=== PATIENT | female | born 1950 | race Caucasian/White ===

== ENCOUNTER 2017-05-28 05:52 | Outpatient (CLI) | payer OTHER, MEDICARE ==
[~2017-05-28] VITALS: Ht 152.4 cm; Wt 82.1 kg
[2017-05-28] MEDS ORDERED: RANI150T15 PO (14:07)
[2017-05-28] MEDS ORDERED: SIMV20TA3 PO (14:07)
[2017-05-28] MEDS ORDERED: OMEP20TA33 PO (14:07)
[2017-05-28] MEDS ORDERED: SUCR1TAB36 PO (14:07)
== END 2017-05-28 14:08 ==
LOC: PREOP 05:52
PROVIDERS: ATTEND Surgery
DX: Z01.818 Encounter for other preprocedural examination (principal); R10.13 Epigastric pain; R14.0 Abdominal distension (gaseous); R14.2 Eructation

== ENCOUNTER → 2017-06-02 | Day surgery (SDC) | payer MEDICARE, OTHER ==
[~2017-06-02] VITALS: Ht 152.4 cm; Wt 82.1 kg
[~2017-06-02] MED LIST: FAMOTIDINE 20MG/2ML IV (PEPCID) IVP ONE; FAMOTIDINE 20MG/2ML IV (PEPCID) ONE; HURRICAINE EXT TUBE (BENZOCAINE) ONE; HURRICAINE EXT TUBE (BENZOCAINE) XX ONE; LACTATED RINGERS 1,000 ML IV ONE; LACTATED RINGERS 1,000 ML IV STA; MIDAZOLAM 2 MG/2 ML (VERSED) VIAL ONE; OMEP20TA33 PO; ONDANSETRON 4 MG/2 ML (SDV) Z0FRAN IVP ONE; ONDANSETRON 4 MG/2 ML (SDV) Z0FRAN ONE; PANT40TA2 PO; RANI150T15 PO; SIMV20TA3 PO; SUCR1TAB36 PO; proPOfol 200 MG/20 ML (DIPRIVAN) VIAL IV ONE
[2017-06-02 12:41] VITALS: BP 136/98
--- NOTE | 2017-06-02 13:03 | Progress Note-Pre Operative ---
Pre-Operative Progress Note H&P Reviewed The H&P was reviewed, patient examined and no changes noted. Date Seen by Provider: Jun 02, 2017 Time Seen by Provider: 13:02 Date H&P Reviewed: Jun 02, 2017 Time H&P Reviewed: 13:02 Pre-Operative Diagnosis: epigastric abdominal pain TIM HURST DO Jun 02, 2017 13:03
--- NOTE | 2017-06-02 13:20 | Progress Note-Post Operative ---
Post-Operative Progess Note Surgeon (s)/Margin Clerk (s) Surgeon TIM HURST DO Margin Clerk: na Pre-Operative Diagnosis epigastric abdominal pain Post-Operative Diagnosis hiatal hernia, slight gastritis Procedure & Operative Findings Date of Procedure 06/02/17 Procedure Performed/Findings egd c biopsy Anesthesia Type per speech clinician Estimated Blood Loss Estimated blood loss (mL): none Specimens/Packing Specimens Removed antrum TIM HURST DO Jun 02, 2017 13:19
--- NOTE | 2017-06-02 13:21 | Discharge Inst-Simple/Standard ---
Discharge Inst-Standard Discharge Medications New, Converted or Re-Newed RX: Transmitted to Pharmacy Patient Instructions/Follow Up Plan of Care/Instructions/FU: 1 week Asim Activity as Tolerated: Yes Discharge Diet: Regular Diet TIM HURST DO Jun 02, 2017 13:21
[2017-06-02 13:35] VITALS: BP 119/72
[2017-06-02 14:00] VITALS: BP 131/78
[2017-06-02 14:02] VITALS: BP 136/98
[2017-06-02 14:13] VITALS: BP 136/98
--- NOTE | 2017-06-02 21:17 | OPERATIVE REPORT ---
DATE OF SERVICE: 06/02/2017 PREOPERATIVE DIAGNOSIS: Epigastric abdominal pain. POSTOPERATIVE DIAGNOSES: Hiatal hernia, slight gastritis. PROCEDURE: EGD with biopsy. SURGEON: Tim Dailey DO ANESTHESIA: Per TOURIST GUIDE. ESTIMATED BLOOD LOSS: None. COMPLICATIONS: None. INDICATIONS: The patient is a 66-year-old female who has been having epigastric abdominal pain. She was started on Zantac, Prilosec and Carafate without any significant improvement. The patient was discussed risks and benefits of procedure, and wished to proceed with procedure. Consent was signed on chart. DESCRIPTION OF PROCEDURE: The patient was taken to the endoscopy suite, placed in left lateral recumbent position. Timeout was performed. Scope was inserted in mouth, down the esophagus, stomach and into the duodenum without difficulty. There were no polyps, masses or ulcerations within the duodenum. The scope was slowly retracted back into the stomach, which was further insufflated. Some slight erythematous changes of the stomach, biopsy of the antrum was obtained. There were no polyps, masses or ulcerations. Scope was retroflexed noting a small hiatal hernia. No other pathology. The scope was then returned to its normal position, slowly withdrawn until the distal esophagus. There were no polyps, masses, ulcerations or erythematous changes. Scope was slowly retracted back until completely removed, noting no other pathology. The patient tolerated the procedure well without any complications. She was taken to the recovery room in stable condition. RECOMMENDATIONS: The patient will stop Zantac and Prilosec and stay on the Carafate. We will add Protonix 40 mg daily. We will see how she is doing. She is scheduled for a HIDA scan to evaluate the gallbladder. We will have her follow up in one week. Job ID: [id number] DocumentID: [id number] Dictated Date: 06/02/2017 13:54:08 Preschool Assistant Teacher Date: 06/02/2017 18:46:10 Dictated By: TIM DAILEY DO
--- OUTSIDE RECORDS SUMMARY | 2017-06-04 13:47 | XMS REPORT | CCD ---
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 Name Role Phone PP Unavailable CCM Unavailable Summary Purpose Interface Exchange Insurance Providers Payer name Policy type / Coverage type Covered green party ID Effective Begin Date Effective End Date WPS Medicare Part B Medicare Part B [id number] Unknown [employer] Medicare Part B [id number] Unknown Family history Daughter Diagnosis Age At Onset Diabetes Unknown Sister Diagnosis Age At Onset Breast cancer Unknown Mother Diagnosis Age At Onset No Family Disease Entered N/A Daughter Diagnosis Age At Onset No Family Disease Entered N/A Daughter Diagnosis Age At Onset No Family Disease Entered N/A Father Diagnosis Age At Onset No Family Disease Entered N/A Social History Social History Element Codes Description Effective Dates Marital status Unknown 12/07/2012 Number of children Unknown 3 12/07/2012 Employment Unknown Retired 12/07/[address]: [id number] Never smoker 12/07/2012 Alcohol history Unknown occasionally drinks alcohol 12/07/2012 Has the patient ever used illegal drugs? Unknown Has never used illegal drugs 12/07/2012 Allergies, Adverse Reactions, Alerts Allergies, Adverse Reactions, Alerts data not found Past Medical History Illness Codes Condition Status Onset Date Resolved Date Gastro-esophageal reflux disease without esophagitis ICD-9: 530.81 ICD-10: K21.9 Active 04/15/2017 Unknown Encounter for immunization ICD-9: V03.82 ICD-10: Z23 Active 02/18/2016 Unknown Impaired fasting glucose ICD-9: 790.21 ICD-10: R73.01 Active 02/18/2016 Unknown Mixed hyperlipidemia ICD-9: 272.4 ICD-10: E78.2 Active 12/07/2012 Unknown ACUTE URI ICD-9: 465.9 Active 06/01/2014 Unknown COUGH ICD-9: 786.2 Active 06/01/2014 Unknown Abnormal glucose ICD-9 : 790.29 Active 10/26/2013 Unknown 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/2013 Unknown HYPERLIPIDEMIA ICD-9: 272.4 Active 10/26/2013 Unknown VACCIN FOR INFLUENZA ICD-9: V04.81 Active 02/08/2013 Unknown Hyperlipidemia Unknown Active 12/07/2012 Unknown Change in skin moles ICD-9: 216.9 Active 12/07/2012 Unknown Problems Condition Codes Effective Dates Condition Status Gastro-esophageal reflux disease without esophagitis ICD-9: 530.81 ICD-10: K21.9 04/15/2017 Active Encounter for immunization ICD-9: V03.82 ICD-10: Z23 02/18/2016 Active Impaired fasting glucose ICD-9: 790.21 ICD-10: R73.01 02/18/2016 Active Mixed hyperlipidemia ICD-9: 272.4 ICD-10: E78.2 12/07/2012 Active ACUTE URI ICD-9: 465.9 06/01/2014 Active COUGH ICD-9: 786.2 06/01/2014 Active Abnormal glucose ICD-9 : 790.29 10/26/2013 Active 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 10/26/2013 Active HYPERLIPIDEMIA ICD-9: 272.4 10/26/2013 Active VACCIN FOR INFLUENZA ICD-9: V04.81 02/08/2013 Active Hyperlipidemia Unknown 12/07/2012 Active Change in skin moles ICD-9: 216.9 12/07/2012 Active Medications Medication Codes Instructions Start Date Stop Date Status Fill Instructions Carafate 1 gram tablet RxNorm: 026257 1 Tablet(s) PO AC & HS as needed 05/28/2017 08/25/2017 Active Prilosec OTC 20 mg tablet,delayed release RxNorm: 819092 1 Tablet(s) PO BID 05/12/2017 08/09/2017 Active Carafate 1 gram tablet RxNorm: 866808 1 Tablet(s) PO AC & HS as needed 04/15/2017 05/14/2017 Inactive Prilosec OTC 20 mg tablet,delayed release RxNorm: 359183 1 Tablet(s) PO BID 04/15/2017 05/11/2017 Inactive simvastatin 20 mg tablet RxNorm: 952460 TAKE ONE TABLET BY MOUTH ONCE DAILY IN THE EVENING 04/08/2017 07/06/2017 Active simvastatin 20 mg tablet RxNorm: 486030 TAKE ONE TABLET BY MOUTH ONCE DAILY IN THE EVENING 01/16/2017 04/07/2017 Inactive simvastatin 20 mg tablet RxNorm: 155874 TAKE ONE TABLET BY MOUTH ONCE DAILY IN THE EVENING 07/14/2016 01/09/2017 Inactive simvastatin 20 mg tablet RxNorm: 988694 TAKE ONE TABLET BY MOUTH ONCE DAILY IN THE EVENING 01/14/2016 07/11/2016 Inactive simvastatin 20 mg tablet RxNorm: 751993 1 Tablet(s) QPM TAKE ONE TABLET BY MOUTH ONCE DAILY 01/18/2015 01/12/2016 Inactive Flonase 50 mcg/actuation nasal spray,suspension RxNorm: 584988 2 [place] NASAL daily 06/01/2014 06/07/2014 Inactive simvastatin 20 mg tablet RxNorm: 636202 1 Tablet(s) QPM TAKE ONE TABLET BY MOUTH ONCE DAILY 06/01/2014 12/27/2014 Inactive Kenalog 40 mg/mL suspension for injection RxNorm: 1424082 1 Milliliter(s) Inj 06/01/2014 06/01/2014 Inactive ceftriaxone 500 mg solution for injection RxNorm: 703387 Inj 06/01/2014 Inactive Augmentin 500 mg-125 mg tablet RxNorm: 112159 1 Tablet(s) PO TID 06/01/2014 06/07/2014 Inactive simvastatin 20 mg tablet RxNorm: 056394 TAKE ONE TABLET BY MOUTH IN THE EVENING 03/23/2014 04/21/2014 Inactive simvastatin 20 mg tablet RxNorm: 232641 1 Tablet(s) QPM TAKE ONE TABLET BY MOUTH ONCE DAILY 03/21/2014 05/31/2014 Inactive simvastatin 20 mg tablet RxNorm: 541792 1 Tablet(s) QPM TAKE ONE TABLET BY MOUTH ONCE DAILY 10/26/2013 03/20/2014 Inactive simvastatin 20 mg tablet RxNorm: 355319 TAKE ONE TABLET BY MOUTH ONCE DAILY 10/18/2013 10/25/2013 Inactive simvastatin 20 mg tablet RxNorm: 556581 1 Tablet(s) PO daily 10/13/2013 Inactive simvastatin 20 mg tablet RxNorm: 518300 1 Tablet(s) PO daily No Start Date 06/15/2013 Inactive Medication Administered Medication Codes Instructions Start Date Status ceftriaxone 500 mg solution for injection RxNorm: 605251 06/01/2014 No longer Active Kenalog 40 mg/mL suspension for injection RxNorm: 0632020 1Milliliter 06/01/2014 No longer Active Immunizations Vaccine Codes Date Status Influenza CVX: 141 12/18/2016 completed Pneumococcal (Adult) CVX: 133 02/19/2016 completed Influenza CVX: 141 12/20/2015 completed Influenza CVX: 141 01/18/2015 completed Influenza CVX: 141 02/08/2013 completed Pneumococcal CVX: 33 02/04/2012 completed Assessments Condition Codes Effective Dates Gastro-esophageal reflux disease without esophagitis ICD-10 : K21.9 ICD-9: 530.81 04/15/2017 Encounter for immunization ICD-10: Z23 ICD-9: V03.82 02/19/2016 Impaired fasting glucose ICD-10: R73.01 ICD-9: 790.21 02/19/2016 Mixed hyperlipidemia ICD-10: E78.2 ICD-9: 272.4 02/19/2016 Encounter for immunization ICD-10: Z23 ICD-9: V04.81 01/18/2015 ACUTE URI ICD-9: 465.9 06/01/2014 COUGH ICD-9: 786.2 06/01/2014 Abnormal glucose ICD-9: 790.29 2013 HYPERLIPIDEMIA ICD-9: 272.4 10/26/2013 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 12/2013 VACCIN FOR INFLUENZA ICD-9: V04.81 2012 Change in skin moles ICD-9: 216.9 2012 Reason For Visit Reason For Visit Effective Dates Notes abdominal pain 04/15/2017 hyperlipidemia 02/19/2016 hyperlipidemia 01/18/2015 cough 06/01/2014 hyperlipidemia 10/26/2013 vaccination against influenza 02/08/2013 diabetes mellitus 12/09/2012 hyperlipidemia 12/07/2012 Results Observation Observation Code Item Item Code Result Date Lipid Ord30 CHOL 175 mg/dL 02/20/2016 Lipid Ord30 HDL 47.0 mg/dl 02/20/2016 Lipid Ord30 TRIG 105 mg/dL 02/20/2016 Lipid Ord30 LDL 107 mg/dL 02/20/2016 Lipid Ord30 C/HDL 3.7 Ratio 02/20/2016 Comp Metabolic Din447 NA 139 mEq/L 02/20/2016 Comp Metabolic Ftw423 K 4.3 mEq/L 02/20/2016 Comp Metabolic Ocj760 CL 106 mEq/L 02/20/2016 Comp Metabolic Jjj424 CO2 26.0 mEq/L 02/20/2016 Comp Metabolic Khc414 ANION GAP 11 02/20/2016 Comp Metabolic Qwn080 GLUCOSE 126 mg/dL 02/20/2016 Comp Metabolic Ahv913 Creat 0.8 mg/dL 02/20/2016 Comp Metabolic Hek739 eGFR 74 ml/min/1.73m2 02/20/2016 Comp Metabolic Rvt901 BUN 9 mg/dL 02/20/2016 Comp Metabolic Msf666 B/C Ratio 11.0 Ratio 02/20/2016 Comp Metabolic Xqf599 CALCIUM 9.0 mg/dL 02/20/2016 Comp Metabolic Jlv819 ALK PHOS 76 U/L 02/20/2016 Comp Metabolic Zko388 AST(SGOT) 15 U/L 02/20/2016 Comp Metabolic Mdk849 ALT(SGPT) 14 U/L 02/20/2016 Comp Metabolic Awg603 BILI T 0.8 mg/dL 02/20/2016 Comp Metabolic Zaf340 ALBUMIN 4.1 g/dL 02/20/2016 Comp Metabolic Eby283 TPRO 6.6 g/dL 02/20/2016 Comp Metabolic Oyf269 GLOB 2.5 g/dL 02/20/2016 Comp Metabolic Kzl175 A/G Ratio 1.6 Ratio 02/20/2016 Comp Metabolic Thh917 Osmo 278 mOsmo 02/20/2016 Cbc With Differential Ord2 WBC 6.30 K/ul 02/20/2016 Cbc With Differential Ord2 RBC 4.79 M/ul 02/20/2016 Cbc With Differential Ord2 HGB 14.7 g/dl 02/20/2016 Cbc With Differential Ord2 HCT 44.1 % 02/20/2016 Cbc With Differential Ord2 Neut% 54.2 % 02/20/2016 Cbc With Differential Ord2 MCV 92.1 fl 02/20/2016 Cbc With Differential Ord2 Lymph% 36.8 % 02/20/2016 Cbc With Differential Ord2 Morris% 7.3 % 02/20/2016 Cbc With Differential Ord2 MCH 30.7 pg 02/20/2016 Cbc With Differential Ord2 MCHC 33.3 pg 02/20/2016 Cbc With Differential Ord2 Eos% 1.4 % 02/20/2016 Cbc With Differential Ord2 Baso% 0.3 % 02/20/2016 Cbc With Differential Ord2 PLT 205 K/ul 02/20/2016 Cbc With Differential Ord2 RDW 13.0 % 02/20/2016 Cbc With Differential Ord2 Neut ABS# 3.41 K/ul 02/20/2016 Cbc With Differential Ord2 Lymph ABS# 2.32 K/ul 02/20/2016 Cbc With Differential Ord2 Morris ABS# 0.5 K/ul 02/20/2016 Cbc With Differential Ord2 Eos ABS# 0.1 K/ul 02/20/2016 Cbc With Differential Ord2 Baso ABS# 0.0 K/ul 02/20/2016 Tsh Ord6 hTSH II 2.62 uIU/mL 02/20/2016 %Hba1C Owm631 % HbA1c 78821-9 6.2 % 02/20/2016 %Hba1C Zdv313 Gluc Ave 131 mg/dL 02/20/2016 Cbc With Differential Ord2 WBC 5.9 K/uL 01/19/2015 Cbc With Differential Ord2 LYM 2.0 K/uL 01/19/2015 Cbc With Differential Ord2 LYM% 34.5 % 01/19/2015 Cbc With Differential Ord2 NEUT/GRAN 3.6 K/uL 01/19/2015 Cbc With Differential Ord2 NEUT/GRAN % 61.3 % 01/19/2015 Cbc With Differential Ord2 MID 0.2 K/uL 01/19/2015 Cbc With Differential Ord2 MID% 4.2 % 01/19/2015 Cbc With Differential Ord2 RBC 4.79 M/uL 01/19/2015 Cbc With Differential Ord2 HGB 14.0 g/dL 01/19/2015 Cbc With Differential Ord2 HCT 45.7 % 01/19/2015 Cbc With Differential Ord2 MCV 96 fL 01/19/2015 Cbc With Differential Ord2 MCH 29 pg 01/19/2015 Cbc With Differential Ord2 MCHC 31 g/dL 01/19/2015 Cbc With Differential Ord2 PLT 221 K/uL 01/19/2015 Cbc With Differential Ord2 RDW 13.9 % 01/19/2015 Tsh Ord6 hTSH II 3.02 uIU/mL 01/19/2015 Lipid Ord30 CHOL 197 mg/dL 01/19/2015 Lipid Ord30 HDL 53.0 mg/dl 01/19/2015 Lipid Ord30 TRIG 95 mg/dL 01/19/2015 Lipid Ord30 LDL 125 mg/dL 01/19/2015 Lipid Ord30 C/HDL 3.7 Ratio 01/19/2015 %Hba1C Mss499 % HbA1c 16390-2 6.1 % 01/19/2015 %Hba1C Gwa191 Gluc Ave 128 mg/dL 01/19/2015 Comp Metabolic Qjv798 NA 139 mEq/L 01/19/2015 Comp Metabolic Chf179 K 4.4 mEq/L 01/19/2015 Comp Metabolic Jmx383 CL 105 mEq/L 01/19/2015 Comp Metabolic Dxd396 CO2 29.0 mEq/L 01/19/2015 Comp Metabolic Wer884 ANION GAP 9 01/19/2015 Comp Metabolic Jhr604 GLUCOSE 128 mg/dL 01/19/2015 Comp Metabolic Xpe016 Creat 0.8 mg/dL 01/19/2015 Comp Metabolic Qoj992 eGFR 74 ml/min/1.73m2 01/19/2015 Comp Metabolic Mjj545 BUN 11 mg/dL 01/19/2015 Comp Metabolic Fzo559 B/C Ratio 13.4 Ratio 01/19/2015 Comp Metabolic Ikm405 CALCIUM 9.1 mg/dL 01/19/2015 Comp Metabolic Yis575 ALK PHOS 81 U/L 01/19/2015 Comp Metabolic Amh358 AST(SGOT) 15 U/L 01/19/2015 Comp Metabolic Hoq406 ALT(SGPT) 14 U/L 01/19/2015 Comp Metabolic Ium395 BILI T 0.8 mg/dL 01/19/2015 Comp Metabolic Nvk927 ALBUMIN 4.2 g/dL 01/19/2015 Comp Metabolic Swz187 TPRO 6.7 g/dL 01/19/2015 Comp Metabolic Skw149 GLOB 2.5 g/dL 01/19/2015 Comp Metabolic Usn245 A/G Ratio 1.7 Ratio 01/19/2015 Comp Metabolic Kfi356 Osmo 279 mOsmo 01/19/2015 Review of Systems System Result Effective Dates Constitutional No recent illness 2016 Constitutional No chills 04/15/2017 Constitutional No diaphoresis 04/15/2017 Constitutional No fever 04/15/2017 Eyes No eye erythema 04/15/2017 Ears/Nose/Throat/Neck No nasal discharge 04/15/2017 Ears/Nose/Throat/Neck No nasal allergies 04/15/2017 Cardiovascular No chest pain/pressure Respiratory No cough 04/15/2017 Respiratory No chest congestion 2016 Gastrointestinal abdominal pain 2016 Gastrointestinal No constipation 2016 Gastrointestinal No diarrhea 04/15/2017 Gastrointestinal gastroesophageal reflux 04/15/2017 Gastrointestinal gas and bloating 2016 Gastrointestinal No vomiting 04/15/2017 Gastrointestinal nausea 04/15/2017 Gastrointestinal No melena 04/15/2017 Gastrointestinal No hematochezia 2016 Neurologic No alteration of consciousness 04/15/2017 Neurologic No mental status change 2016 Constitutional No recent illness 2015 Constitutional No anorexia 02/19/2016 Constitutional No chills 02/19/2016 Constitutional No night sweats 2015 Constitutional No diaphoresis 02/19/2016 Constitutional No fatigue 02/19/2016 Constitutional No insomnia 02/19/2016 Constitutional No fever 02/19/2016 Constitutional No malaise 02/19/2016 Constitutional No weight loss 02/19/2016 Constitutional No weight gain 02/19/2016 Eyes No eye erythema 02/19/2016 Eyes No eye discharge 02/19/2016 Ears/Nose/Throat/Neck No dizziness 2015 Ears/Nose/Throat/Neck No headache 2015 Cardiovascular No chest pain/pressure 04/2015 Respiratory No cough 02/19/2016 Gastrointestinal No abdominal pain 2015 Gastrointestinal No constipation 2015 Gastrointestinal No diarrhea 02/19/2016 Genitourinary/Nephrology No dysuria 02/18 Musculoskeletal No joint complaint 2015 Dermatologic No rash 02/19/2016 Neurologic No alteration of consciousness 02/19/2016 Psychiatric No anxiety 02/19/2016 Psychiatric No depression 02/19/2016 Endocrine No dry or coarse skin 2015 Hematologic/Lymphatic No abnormal bleeding and bruising 02/19/2016 Constitutional No recent illness 2014 Constitutional No anorexia 01/18/2015 Constitutional No night sweats 2014 Constitutional No chills 01/18/2015 Constitutional No diaphoresis 01/18/2015 Constitutional No fatigue 01/18/2015 Constitutional No fever 01/18/2015 Constitutional No malaise 01/18/2015 Constitutional No insomnia 01/18/2015 Constitutional No weight loss 01/18/2015 Constitutional No weight gain 01/18/2015 Constitutional No obesity 01/18/2015 Eyes No vision change 01/18/2015 Ears/Nose/Throat/Neck No headache 2014 Ears/Nose/Throat/Neck No dizziness 2014 Ears/Nose/Throat/Neck No nasal allergies 01/18/2015 Ears/Nose/Throat/Neck No nasal discharge 01/18/2015 Ears/Nose/Throat/Neck No sinus congestion 01/18/2015 Ears/Nose/Throat/Neck No postnasal drip 01/18/2015 Ears/Nose/Throat/Neck No otalgia 2014 Cardiovascular No chest pain/pressure 04/2014 Cardiovascular No exercise intolerance Cardiovascular No edema 01/18/2015 Respiratory No chest congestion 2014 Respiratory No cigarette smoking 2014 Respiratory No chest tightness 2014 Respiratory No productive sputum 2014 Respiratory No dyspnea on exertion 2014 Respiratory No dyspnea 01/18/2015 Gastrointestinal No constipation 2014 Gastrointestinal No diarrhea 01/18/2015 Respiratory snoring 01/18/2015 Genitourinary/Nephrology No dysuria 01/18 Musculoskeletal No arthralgia(s) 2014 Musculoskeletal No myalgias 01/18/2015 Musculoskeletal No joint complaint 2014 Musculoskeletal No muscle weakness 2014 Dermatologic No rash 01/18/2015 Dermatologic No sores 01/18/2015 Psychiatric No anxiety 01/18/2015 Psychiatric No depression 01/18/2015 Constitutional recent illness 06/01/2014 Constitutional No anorexia 06/01/2014 Constitutional No night sweats 2014 Constitutional No chills 06/01/2014 Constitutional No diaphoresis 06/01/2014 Constitutional fatigue 06/01/2014 Constitutional fever 06/01/2014 Constitutional No insomnia 06/01/2014 Constitutional No malaise 06/01/2014 Constitutional No weight loss 06/01/2014 Constitutional No weight gain 06/01/2014 Eyes No eye discharge 06/01/2014 Eyes No eye erythema 06/01/2014 Ears/Nose/Throat/Neck No dizziness 2014 Ears/Nose/Throat/Neck headache 2014 Ears/Nose/Throat/Neck nasal allergies 03/2015 Ears/Nose/Throat/Neck nasal discharge 03/2015 Ears/Nose/Throat/Neck No otalgia 2014 Ears/Nose/Throat/Neck sinus congestion Ears/Nose/Throat/Neck No sore throat 03/2015 Cardiovascular No chest pain/pressure 03/2015 Respiratory productive sputum 06/01/2014 Respiratory chest congestion 06/01/2014 Respiratory cough 06/01/2014 Respiratory No dyspnea 06/01/2014 Gastrointestinal No nausea 06/01/2014 Gastrointestinal No vomiting 06/01/2014 Genitourinary/Nephrology No dysuria 06/01 Musculoskeletal No joint complaint 2014 Dermatologic No rash 06/01/2014 Dermatologic No sores 06/01/2014 Neurologic No alteration of consciousness 06/01/2014 Constitutional No recent illness 2013 Constitutional No chills 10/26/2013 Constitutional No fatigue 10/26/2013 Constitutional No fever 10/26/2013 Constitutional No insomnia 10/26/2013 Constitutional No malaise 10/26/2013 Eyes No blindness 10/26/2013 Eyes No vision change 10/26/2013 Ears/Nose/Throat/Neck No dental pain 12/2013 Ears/Nose/Throat/Neck No dizziness 2013 Ears/Nose/Throat/Neck No dysphagia 2013 Ears/Nose/Throat/Neck No headache 2013 Ears/Nose/Throat/Neck No hearing loss 12/2013 Ears/Nose/Throat/Neck No nasal allergies 10/26/2013 Ears/Nose/Throat/Neck No sore throat 12/2013 Ears/Nose/Throat/Neck No postnasal drip 10/26/2013 Ears/Nose/Throat/Neck No sinus congestion 10/26/2013 Respiratory No chest tightness 2013 Respiratory No cigarette smoking 2013 Respiratory No cough 10/26/2013 Respiratory No dyspnea 10/26/2013 Respiratory No pedal edema 10/26/2013 Respiratory No snoring 10/26/2013 Respiratory No wheezing 10/26/2013 Gastrointestinal No hemorrhoids 2013 Gastrointestinal No abdominal pain 2013 Gastrointestinal No constipation 2013 Gastrointestinal No diarrhea 10/26/2013 Gastrointestinal No gastroesophageal reflux 10/26/2013 Gastrointestinal No melena 10/26/2013 Gastrointestinal No nausea 10/26/2013 Gastrointestinal No vomiting 10/26/2013 Genitourinary/Nephrology No dysuria 10/26 Genitourinary/Nephrology No nocturia 12/2013 Genitourinary/Nephrology No urinary incontinence 10/26/2013 Musculoskeletal No stiffness 10/26/2013 Musculoskeletal No swelling 10/26/2013 Musculoskeletal No muscle weakness 2013 Musculoskeletal No myalgias 10/26/2013 Dermatologic No rash 10/26/2013 Dermatologic No scar 10/26/2013 Neurologic No dizziness 10/26/2013 Neurologic No headache 10/26/2013 Neurologic No neck pain 10/26/2013 Neurologic No syncope 10/26/2013 Psychiatric No anxiety 10/26/2013 Psychiatric No depression 10/26/2013 Constitutional No recent illness 2012 Constitutional No anorexia 12/09/2012 Constitutional No night sweats 2012 Constitutional No chills 12/09/2012 Constitutional No diaphoresis 12/09/2012 Constitutional No fatigue 12/09/2012 Constitutional No fever 12/09/2012 Constitutional No insomnia 12/09/2012 Constitutional No malaise 12/09/2012 Constitutional No recent illness 2012 Constitutional No chills 12/07/2012 Constitutional No fatigue 12/07/2012 Constitutional No fever 12/07/2012 Constitutional No insomnia 12/07/2012 Constitutional No malaise 12/07/2012 Respiratory No chest tightness 2012 Respiratory No cigarette smoking 2012 Respiratory No cough 12/07/2012 Respiratory No dyspnea 12/07/2012 Respiratory No pedal edema 12/07/2012 Respiratory No snoring 12/07/2012 Respiratory No wheezing 12/07/2012 Psychiatric No anxiety 12/07/2012 Psychiatric No depression 12/07/2012 Neurologic No dizziness 12/07/2012 Neurologic No headache 12/07/2012 Neurologic No neck pain 12/07/2012 Neurologic No syncope 12/07/2012 Genitourinary/Nephrology No dysuria 12/07 Genitourinary/Nephrology No nocturia Genitourinary/Nephrology No urinary incontinence 12/07/2012 Gastrointestinal No hemorrhoids 2012 Gastrointestinal No abdominal pain 2012 Gastrointestinal No constipation 2012 Gastrointestinal No diarrhea 12/07/2012 Gastrointestinal No gastroesophageal reflux 12/07/2012 Gastrointestinal No melena 12/07/2012 Gastrointestinal No nausea 12/07/2012 Gastrointestinal No vomiting 12/07/2012 Musculoskeletal No stiffness 12/07/2012 Musculoskeletal No swelling 12/07/2012 Musculoskeletal No muscle weakness 2012 Musculoskeletal No myalgias 12/07/2012 Eyes No blindness 12/07/2012 Eyes No vision change 12/07/2012 Ears/Nose/Throat/Neck No dental pain Ears/Nose/Throat/Neck No dizziness 2012 Ears/Nose/Throat/Neck No dysphagia 2012 Ears/Nose/Throat/Neck No headache 2012 Ears/Nose/Throat/Neck No hearing loss Ears/Nose/Throat/Neck No nasal allergies 12/07/2012 Ears/Nose/Throat/Neck No sore throat Ears/Nose/Throat/Neck No postnasal drip 12/07/2012 Ears/Nose/Throat/Neck No sinus congestion 12/07/2012 Dermatologic No rash 12/07/2012 Dermatologic No scar 12/07/2012 Physical Exam Exam Name System Name Item Name Status Result Effective Dates Notes Full Exam - General 1994 Constitutional general appearance Overall: well developed 04/15/2017 None Full Exam - General 1994 Constitutional general appearance Overall: in no acute distress 04/15/2017 None Full Exam - General 1994 Constitutional general appearance Overall: well nourished 04/15/2017 None Full Exam - General 1994 Eyes conjunctiva /eyelids Overall: conjunctiva clear 04/15/2017 None Full Exam - General 1994 Eyes conjunctiva /eyelids Overall: cornea clear 04/15/2017 None Full Exam - General 1994 Eyes conjunctiva /eyelids Overall: eyelids normal 04/15/2017 None Full Exam - General 1994 Ears/Nose/Throat lips/teeth/gingiva Overall: benign lips 04/15/2017 None Full Exam - General 1994 Ears/Nose/Throat oral cavity/pharynx/larynx Overall: oral mucosa clear 04/15/2017 None Full Exam - General 1994 Respiratory respiratory effort/rhythm Overall: normal rate 04/15/2017 None Full Exam - General 1994 Respiratory respiratory effort/rhythm Overall: no retractions 04/15/2017 None Full Exam - General 1994 Respiratory auscultation Overall: breath sounds clear bilaterally 04/15/2017 None Full Exam - General 1994 Cardiovascular auscultation of heart Overall: regular rate 04/15/2017 None Full Exam - General 1994 Cardiovascular auscultation of heart Overall: normal heart sounds 04/15/2017 None Full Exam - General 1994 Abdomen abdominal exam Overall: normal bowel sounds 04/15/2017 None Full Exam - General 1994 Abdomen abdominal exam Epigastric: non-tender to palpation 04/15/2017 None Full Exam - General 1994 Abdomen abdominal exam Epigastric: dull pain 04/15/2017 None Full Exam - General 1994 Abdomen abdominal exam Epigastric: no rebound tenderness 04/15/2017 None Full Exam - General 1994 Abdomen abdominal exam Epigastric: soft 04/15/2017 None Full Exam - General 1994 Musculoskeletal head and neck Overall: head atraumatic 04/15/2017 None Full Exam - General 1994 Neurologic cranial nerves Overall: crainial nerves 2 - 12 grossly intact 04/15/2017 None Full Exam - General 1994 Psychiatric orientation/consciousness Overall: oriented to person, place and time 04/15/2017 None Full Exam - General 1994 Psychiatric mood and affect Overall: normal mood and affect 04/15/2017 None Full Exam - General 1994 Psychiatric appearance Overall: well-groomed, good eye contact 04/15/2017 None Full Exam - General 1994 Constitutional general appearance Overall: well developed 02/19/2016 None Full Exam - General 1994 Constitutional general appearance Overall: in no acute distress 02/19/2016 None Full Exam - General 1994 Constitutional general appearance Overall: well nourished 02/19/2016 None Full Exam - General 1994 Eyes pupils and irises Overall: pupils equal, round, reactive to light and accomodation 02/19/2016 None Full Exam - General 1994 Ears/Nose/Throat otoscopic exam Overall: external auditory canals clear 02/19/2016 None Full Exam - General 1994 Ears/Nose/Throat otoscopic exam Overall: tympanic membranes clear 02/19/2016 None Full Exam - General 1994 Ears/Nose/Throat oral cavity/pharynx/larynx Overall: oral mucosa clear 02/19/2016 None Full Exam - General 1994 Ears/Nose/Throat oral cavity/pharynx/larynx Overall: oropharyngeal mucosa clear 02/19/2016 None Full Exam - General 1994 Ears/Nose/Throat oral cavity/pharynx/larynx Overall: no masses 02/19/2016 None Full Exam - General 1994 Neck thyroid Overall: normal size 04/2015 None Full Exam - General 1994 Neck thyroid Overall: normal consistency 02/19/2016 None Full Exam - General 1994 Neck thyroid Overall: nontender 2015 None Full Exam - General 1994 Neck thyroid Overall: no mass lesions 02/19/2016 None Full Exam - General 1994 Respiratory auscultation Overall: breath sounds clear bilaterally 02/19/2016 None Full Exam - General 1994 Respiratory respiratory effort/rhythm Overall: no retractions 02/19/2016 None Full Exam - General 1994 Respiratory respiratory effort/rhythm Overall: normal rate 02/19/2016 None Full Exam - General 1994 Cardiovascular extremities Overall: no clubbing 02/19/2016 None Full Exam - General 1994 Cardiovascular auscultation of heart Overall: regular rate 02/19/2016 None Full Exam - General 1994 Cardiovascular auscultation of heart Overall: normal heart sounds 02/19/2016 None Full Exam - General 1994 Cardiovascular auscultation of heart Overall: no murmurs 02/19/2016 None Full Exam - General 1994 Abdomen abdominal exam Overall: no tenderness 02/19/2016 None Full Exam - General 1994 Abdomen abdominal exam Overall: normal bowel sounds 02/19/2016 None Full Exam - General 1994 Abdomen liver and spleen exam Overall: no hepatosplenomegaly 02/19/2016 None Full Exam - General 1994 Abdomen liver and spleen exam Overall: no stigmata of chronic liver disease 02/19/2016 None Full Exam - General 1994 Lymphatic neck nodes Overall: anterior cervical chain benign 02/19/2016 None Full Exam - General 1994 Lymphatic neck nodes Overall: posterior cervical chain benign 02/19/2016 None Full Exam - General 1994 Musculoskeletal spine, ribs and pelvis Overall: spine benign 02/19/2016 None Full Exam - General 1994 Musculoskeletal spine, ribs and pelvis Overall: sacroiliac joint benign 02/19/2016 None Full Exam - General 1994 Musculoskeletal spine, ribs and pelvis Overall: good posture 02/19/2016 None Full Exam - General 1994 Musculoskeletal head and neck Overall: head atraumatic 02/19/2016 None Full Exam - General 1994 Musculoskeletal head and neck Overall: cervical spine benign 02/19/2016 None Full Exam - General 1994 Neurologic deep tendon reflexes Overall: deep tendon reflexes intact 02/19/2016 None Full Exam - General 1994 Neurologic cranial nerves Overall: crainial nerves 2 - 12 grossly intact 02/19/2016 None Full Exam - General 1994 Psychiatric orientation/consciousness Overall: oriented to person, place and time 02/19/2016 None Full Exam - General 1994 Psychiatric mood and affect Overall: normal mood and affect 02/19/2016 None Full Exam - General 1994 Psychiatric mood and affect Mood: happy 02/19/2016 None Full Exam - General 1994 Constitutional general appearance Overall: well developed 01/18/2015 None Full Exam - General 1994 Constitutional general appearance Overall: in no acute distress 01/18/2015 None Full Exam - General 1994 Constitutional general appearance Overall: well nourished 01/18/2015 None Full Exam - General 1994 Eyes pupils and irises Overall: pupils equal, round, reactive to light and accomodation 01/18/2015 None Full Exam - General 1994 Ears/Nose/Throat otoscopic exam Overall: external auditory canals clear 01/18/2015 None Full Exam - General 1994 Ears/Nose/Throat otoscopic exam Overall: tympanic membranes clear 01/18/2015 None Full Exam - General 1994 Ears/Nose/Throat oral cavity/pharynx/larynx Overall: oral mucosa clear 01/18/2015 None Full Exam - General 1994 Ears/Nose/Throat oral cavity/pharynx/larynx Overall: oropharyngeal mucosa clear 01/18/2015 None Full Exam - General 1994 Ears/Nose/Throat oral cavity/pharynx/larynx Overall: no masses 01/18/2015 None Full Exam - General 1994 Neck thyroid Overall: normal size 04/2014 None Full Exam - General 1994 Neck thyroid Overall: normal consistency 01/18/2015 None Full Exam - General 1994 Neck thyroid Overall: nontender 2014 None Full Exam - General 1994 Neck thyroid Overall: no mass lesions 01/18/2015 None Full Exam - General 1994 Respiratory auscultation Overall: breath sounds clear bilaterally 01/18/2015 None Full Exam - General 1994 Respiratory respiratory effort/rhythm Overall: no retractions 01/18/2015 None Full Exam - General 1994 Respiratory respiratory effort/rhythm Overall: normal rate 01/18/2015 None Full Exam - General 1994 Cardiovascular extremities Overall: no clubbing 01/18/2015 None Full Exam - General 1994 Cardiovascular auscultation of heart Overall: regular rate 01/18/2015 None Full Exam - General 1994 Cardiovascular auscultation of heart Overall: normal heart sounds 01/18/2015 None Full Exam - General 1994 Cardiovascular auscultation of heart Overall: no murmurs 01/18/2015 None Full Exam - General 1994 Abdomen abdominal exam Overall: no tenderness 01/18/2015 None Full Exam - General 1994 Abdomen abdominal exam Overall: normal bowel sounds 01/18/2015 None Full Exam - General 1994 Abdomen liver and spleen exam Overall: no hepatosplenomegaly 01/18/2015 None Full Exam - General 1994 Abdomen liver and spleen exam Overall: no stigmata of chronic liver disease 01/18/2015 None Full Exam - General 1994 Lymphatic neck nodes Overall: anterior cervical chain benign 01/18/2015 None Full Exam - General 1994 Lymphatic neck nodes Overall: posterior cervical chain benign 01/18/2015 None Full Exam - General 1994 Musculoskeletal spine, ribs and pelvis Overall: spine benign 01/18/2015 None Full Exam - General 1994 Musculoskeletal spine, ribs and pelvis Overall: sacroiliac joint benign 01/18/2015 None Full Exam - General 1994 Musculoskeletal spine, ribs and pelvis Overall: good posture 01/18/2015 None Full Exam - General 1994 Musculoskeletal head and neck Overall: head atraumatic 01/18/2015 None Full Exam - General 1994 Musculoskeletal head and neck Overall: cervical spine benign 01/18/2015 None Full Exam - General 1994 Neurologic deep tendon reflexes Overall: deep tendon reflexes intact 01/18/2015 None Full Exam - General 1994 Neurologic cranial nerves Overall: crainial nerves 2 - 12 grossly intact 01/18/2015 None Full Exam - General 1994 Psychiatric orientation/consciousness Overall: oriented to person, place and time 01/18/2015 None Full Exam - General 1994 Psychiatric mood and affect Overall: normal mood and affect 01/18/2015 None Full Exam - General 1994 Psychiatric mood and affect Mood: happy 01/18/2015 None Full Exam - ENT Constitutional general appearance Overall: well nourished 06/01/2014 None Full Exam - ENT Constitutional general appearance Overall: well developed 06/01/2014 None Full Exam - ENT Constitutional general appearance Overall: in no acute distress 06/01/2014 None Full Exam - ENT Neurologic orientation Overall: oriented to person, place and time 06/01/2014 None Full Exam - ENT Lymphatic palpation of lymph nodes Overall: shotty lymphadenopathy 06/01/2014 None Full Exam - ENT Abdomen abdominal exam Overall: no tenderness 06/01/2014 None Full Exam - ENT Abdomen abdominal exam Overall: normal bowel sounds 06/01/2014 None Full Exam - ENT Cardiovascular auscultation of heart Overall: regular rate 06/01/2014 None Full Exam - ENT Cardiovascular auscultation of heart Overall: normal heart sounds 06/01/2014 None Full Exam - ENT Respiratory inspection Overall: normal rate 03/2015 None Full Exam - ENT Respiratory inspection Overall: no retractions 06/01/2014 None Full Exam - ENT Respiratory auscultation Overall: breath sounds clear bilaterally 06/01/2014 None Full Exam - ENT Face and Head palpation Overall: no sinus tenderness 06/01/2014 None Full Exam - ENT Ears/Nose/Throat otoscopic exam Overall: tympanic membranes normal 06/01/2014 None Full Exam - ENT Ears/Nose/Throat otoscopic exam Overall: external auditory canals normal 06/01/2014 None Full Exam - ENT Ears/Nose/Throat oropharynx Overall: oral mucosa clear 06/01/2014 None Full Exam - General 1994 Constitutional general appearance Overall: well developed 10/26/2013 None Full Exam - General 1994 Constitutional general appearance Overall: in no acute distress 10/26/2013 None Full Exam - General 1994 Constitutional general appearance Overall: well nourished 10/26/2013 None Full Exam - General 1994 Eyes pupils and irises Overall: pupils equal, round, reactive to light and accomodation 10/26/2013 None Full Exam - General 1994 Ears/Nose/Throat otoscopic exam Overall: external auditory canals clear 10/26/2013 None Full Exam - General 1994 Ears/Nose/Throat otoscopic exam Overall: tympanic membranes clear 10/26/2013 None Full Exam - General 1994 Ears/Nose/Throat oral cavity/pharynx/larynx Overall: oral mucosa clear 10/26/2013 None Full Exam - General 1994 Ears/Nose/Throat oral cavity/pharynx/larynx Overall: oropharyngeal mucosa clear 10/26/2013 None Full Exam - General 1994 Ears/Nose/Throat oral cavity/pharynx/larynx Overall: no masses 10/26/2013 None Full Exam - General 1994 Neck thyroid Overall: normal size 12/2013 None Full Exam - General 1994 Neck thyroid Overall: normal consistency 10/26/2013 None Full Exam - General 1994 Neck thyroid Overall: nontender 2013 None Full Exam - General 1994 Neck thyroid Overall: no mass lesions 10/26/2013 None Full Exam - General 1994 Respiratory auscultation Overall: breath sounds clear bilaterally 10/26/2013 None Full Exam - General 1994 Respiratory respiratory effort/rhythm Overall: no retractions 10/26/2013 None Full Exam - General 1994 Respiratory respiratory effort/rhythm Overall: normal rate 10/26/2013 None Full Exam - General 1994 Cardiovascular extremities Overall: no clubbing 10/26/2013 None Full Exam - General 1994 Cardiovascular auscultation of heart Overall: regular rate 10/26/2013 None Full Exam - General 1994 Cardiovascular auscultation of heart Overall: normal heart sounds 10/26/2013 None Full Exam - General 1994 Cardiovascular auscultation of heart Overall: no murmurs 10/26/2013 None Full Exam - General 1994 Abdomen abdominal exam Overall: no tenderness 10/26/2013 None Full Exam - General 1994 Abdomen abdominal exam Overall: normal bowel sounds 10/26/2013 None Full Exam - General 1994 Abdomen liver and spleen exam Overall: no hepatosplenomegaly 10/26/2013 None Full Exam - General 1994 Abdomen liver and spleen exam Overall: no stigmata of chronic liver disease 10/26/2013 None Full Exam - General 1994 Lymphatic neck nodes Overall: anterior cervical chain benign 10/26/2013 None Full Exam - General 1994 Lymphatic neck nodes Overall: posterior cervical chain benign 10/26/2013 None Full Exam - General 1994 Musculoskeletal spine, ribs and pelvis Overall: spine benign 10/26/2013 None Full Exam - General 1994 Musculoskeletal spine, ribs and pelvis Overall: sacroiliac joint benign 10/26/2013 None Full Exam - General 1994 Musculoskeletal spine, ribs and pelvis Overall: good posture 10/26/2013 None Full Exam - General 1994 Musculoskeletal head and neck Overall: head atraumatic 10/26/2013 None Full Exam - General 1994 Musculoskeletal head and neck Overall: cervical spine benign 10/26/2013 None Full Exam - General 1994 Integument inspection of skin Dermatitis: mole 10/26/2013 in left mid back - above bra clasp - dark center with internal communications specialist peripheral surrounding freckle. Full Exam - General 1994 Neurologic deep tendon reflexes Overall: deep tendon reflexes intact 10/26/2013 None Full Exam - General 1994 Neurologic cranial nerves Overall: crainial nerves 2 - 12 grossly intact 10/26/2013 None Full Exam - General 1994 Psychiatric orientation/consciousness Overall: oriented to person, place and time 10/26/2013 None Full Exam - General 1994 Psychiatric mood and affect Overall: normal mood and affect 10/26/2013 None Full Exam - General 1994 Psychiatric mood and affect Mood: happy 10/26/2013 None Full Exam - General 1994 Constitutional general appearance Overall: well developed 12/09/2012 None Full Exam - General 1994 Constitutional general appearance Overall: in no acute distress 12/09/2012 None Full Exam - General 1994 Constitutional general appearance Overall: well nourished 12/09/2012 None Full Exam - General 1994 Psychiatric orientation/consciousness Overall: oriented to person, place and time 12/09/2012 None Full Exam - General 1994 Eyes conjunctiva /eyelids Overall: conjunctiva clear 12/09/2012 None Full Exam - General 1994 Constitutional general appearance Overall: well nourished 12/07/2012 None Full Exam - General 1994 Constitutional general appearance Overall: well developed 12/07/2012 None Full Exam - General 1994 Constitutional general appearance Overall: in no acute distress 12/07/2012 None Full Exam - General 1994 Eyes pupils and irises Overall: pupils equal, round, reactive to light and accomodation 12/07/2012 None Full Exam - General 1994 Ears/Nose/Throat otoscopic exam Overall: tympanic membranes clear 12/07/2012 None Full Exam - General 1994 Ears/Nose/Throat otoscopic exam Overall: external auditory canals clear 12/07/2012 None Full Exam - General 1994 Ears/Nose/Throat oral cavity/pharynx/larynx Overall: oropharyngeal mucosa clear 12/07/2012 None Full Exam - General 1995 Ears/Nose/Throat oral cavity/pharynx/larynx Overall: no masses 12/07/2012 None Full Exam - General 1995 Ears/Nose/Throat oral cavity/pharynx/larynx Overall: oral mucosa clear 12/07/2012 None Full Exam - General 1994 Neck thyroid Overall: nontender 2012 None Full Exam - General 1994 Neck thyroid Overall: normal size None Full Exam - General 1994 Neck thyroid Overall: no mass lesions 12/07/2012 None Full Exam - General 1994 Neck thyroid Overall: normal consistency 12/07/2012 None Full Exam - General 1994 Respiratory respiratory effort/rhythm Overall: normal rate 12/07/2012 None Full Exam - General 1994 Respiratory respiratory effort/rhythm Overall: no retractions 12/07/2012 None Full Exam - General 1994 Respiratory auscultation Overall: breath sounds clear bilaterally 12/07/2012 None Full Exam - General 1994 Cardiovascular auscultation of heart Overall: regular rate 12/07/2012 None Full Exam - General 1994 Cardiovascular auscultation of heart Overall: normal heart sounds 12/07/2012 None Full Exam - General 1994 Cardiovascular auscultation of heart Overall: no murmurs 12/07/2012 None Full Exam - General 1994 Cardiovascular extremities Overall: no clubbing 12/07/2012 None Full Exam - General 1994 Abdomen abdominal exam Overall: no tenderness 12/07/2012 None Full Exam - General 1994 Abdomen abdominal exam Overall: normal bowel sounds 12/07/2012 None Full Exam - General 1994 Abdomen liver and spleen exam Overall: no hepatosplenomegaly 12/07/2012 None Full Exam - General 1994 Abdomen liver and spleen exam Overall: no stigmata of chronic liver disease 12/07/2012 None Full Exam - General 1994 Lymphatic neck nodes Overall: anterior cervical chain benign 12/07/2012 None Full Exam - General 1994 Lymphatic neck nodes Overall: posterior cervical chain benign 12/07/2012 None Full Exam - General 1994 Musculoskeletal head and neck Overall: cervical spine benign 12/07/2012 None Full Exam - General 1994 Musculoskeletal head and neck Overall: head atraumatic 12/07/2012 None Full Exam - General 1994 Musculoskeletal spine, ribs and pelvis Overall: good posture 12/07/2012 None Full Exam - General 1994 Musculoskeletal spine, ribs and pelvis Overall: sacroiliac joint benign 12/07/2012 None Full Exam - General 1994 Musculoskeletal spine, ribs and pelvis Overall: spine benign 12/07/2012 None Full Exam - General 1994 Neurologic deep tendon reflexes Overall: deep tendon reflexes intact 12/07/2012 None Full Exam - General 1994 Neurologic cranial nerves Overall: crainial nerves 2 - 12 grossly intact 12/07/2012 None Full Exam - General 1994 Psychiatric orientation/consciousness Overall: oriented to person, place and time 12/07/2012 None Full Exam - General 1994 Psychiatric mood and affect Mood: happy 12/07/2012 None Full Exam - General 1994 Psychiatric mood and affect Overall: normal mood and affect 12/07/2012 None Full Exam - General 1994 Integument inspection of skin Dermatitis: mole 12/07/2012 in left mid back - above bra clasp - dark center with internal communications specialist peripheral surrounding freckle. Procedures Procedure Codes Date THER/PROPH/DIAG INJ SC/IM CPT-4: 89599 02/19/2016 PNEUMOCOCCAL VACC [address]: 77128874 CPT-4: 90691 02/19/2016 FLU VACC 4 ANIKA 3 YRS PLUS IM Formatting Model/CDA Sections, Assigned to SNOMED CT: 41193090 CPT-4: [id number] 01/18/2015 ADMIN INFLUENZA VIRUS VAC Formatting Model/CDA Sections, Assigned to CPT-4: [id number] 01/18/2015 TRIAMCINOLONE ACET INJ NOS CPT-4: J3301 06/01/2014 ROCEPHIN, PER 250 MG CPT-4: J0696 06/01/2014 IMMUNIZATION ADMIN CPT -4: 55037 02/08/2013 Influenza Virus Vaccine, Split Virus, >3 Yrs, IM CPT-4: 98890 02/08/2013 Vital Signs Date Vital 04/15/2017 Blood Pressure 1: 136/72 Code : 8480-6 BMI: 35.0 Code : 86773-3 Heart Rate 1 : 80 bpm Height: 5' SpO2: 98% Weight: 179 lbs 02/19/2016 Blood Pressure 1: 130/80 Code : 8480-6 BMI: 35.9 Code : 64739-1 Heart Rate 1 : 75 bpm Height: 5' SpO2: 95% Weight: 184 lbs 01/18/2015 Blood Pressure 1: 142/80 Code : 8480-6 BMI: 34.8 Code : 97949-4 Heart Rate 1 : 76 bpm Height: 5' Weight: 178 lbs 06/01/2014 Blood Pressure 1: 146/88 Code : 8480-6 BMI: 33.4 Code : 95607-1 Heart Rate 1 : 84 bpm Height: 5' Temperature: 37.0 (C) / 98.6 (F) Weight: 171 lbs 10/26/2013 Blood Pressure 1: 142/84 Code : 8480-6 BMI: 30.5 Code : 65112-1 Heart Rate 1 : 60 bpm Height: 5' Weight: 156 lbs 12/09/2012 Blood Pressure 1: 132/90 Code : 8480-6 Heart Rate 1: 56 bpm Weight: 12/07/2012 Blood Pressure 1: 130/82 Code : 8480-6 BMI: 35.2 Code : 96832-9 Heart Rate 1 : 80 bpm Height: 5' Weight: 180 lbs Functional Status No Functional Status data History of Present Illness Symptom Name Status Result Effective Date Notes abdominal pain Location in the epigastric area 04/15/2017 None abdominal pain Quality intermittent 04/15/2017 None abdominal pain Quality worsening 04/15/2017 None abdominal pain Pertinent Findings Denies cough 04/15/2017 None hyperlipidemia Onset of Symptom during adulthood 02/19/2016 None hyperlipidemia Severity mild 02/19/2016 None hyperlipidemia Frequency of Episodes unchanged 02/19/2016 None hyperlipidemia Significant Medications statin 02/19/2016 None hyperlipidemia Alleviating Factors medication 02/19/2016 None hyperlipidemia Exacerbating Factors diet 02/19/2016 None hyperlipidemia Pertinent Findings insulin resistance 02/19/2016 None hyperlipidemia Pertinent Findings Denies nausea 02/19/2016 None hyperlipidemia Pertinent Findings Denies obesity 02/19/2016 None hyperlipidemia Onset and Resolution ongoing 02/19/2016 None hyperlipidemia Significant Family History hyperlipidemia 02/19/2016 None hyperlipidemia Onset and Resolution ongoing 01/18/2015 None hyperlipidemia Onset of Symptom during adulthood 01/18/2015 None hyperlipidemia Severity mild 01/18/2015 None hyperlipidemia Exacerbating Factors diet 01/18/2015 None hyperlipidemia Pertinent Findings insulin resistance 01/18/2015 None hyperlipidemia Pertinent Findings Denies nausea 01/18/2015 None hyperlipidemia Pertinent Findings Denies obesity 01/18/2015 None hyperlipidemia Significant Family History hyperlipidemia 01/18/2015 None hyperlipidemia Frequency of Episodes unchanged 01/18/2015 None hyperlipidemia Alleviating Factors medication 01/18/2015 None hyperlipidemia Significant Medications statin 01/18/2015 None cough Onset of Symptom 3 days ago 06/01/2014Thursday cough Pertinent Findings chest discomfort 06/01/2014 reports feels heavy and hurts when she coughs cough Pertinent Findings Denies dyspnea 06/01/2014 None cough Pertinent Findings fever 06/01/2014 99.1 cough Pertinent Findings nasal congestion 06/01/2014 None cough Pertinent Findings sputum production 06/01/2014 clear sinus congestion Onset of Symptom 3 days ago 06/01/2014 None sinus congestion Pertinent Findings cough 06/01/2014 None sinus congestion Pertinent Findings fever 06/01/2014 None sinus congestion Pertinent Findings decreased energy level 06/01/2014 None fever Onset of Symptom 3 days ago 06/01/2014 None fever Temperature 99 degrees 06/01/2014 None fever Pertinent Findings chills 06/01/2014Thursday and Thursday fever Pertinent Findings cough 06/01/2014 None cough Quality acute None cough Onset and Resolution ongoing 06/01/2014 None cough Location in the throat 06/01/2014 None cough Limitation on Activities does not limit activities 06/01/2014 None cough Frequency of Episodes increasing 06/01/2014 None cough Triggers no known associated factors 06/01/2014 None cough Pertinent Findings Denies lethargy 06/01/2014 None cough Pertinent Findings Denies vomiting 06/01/2014 None sinus congestion Onset and Resolution ongoing 06/01/2014 None sinus congestion Severity moderate 06/01/2014 None sinus congestion Frequency of Episodes increasing 06/01/2014 None sinus congestion Triggers no known associated factors 06/01/2014 None sinus congestion Location on both sides 06/01/2014 None sinus congestion Quality acute 06/01/2014 None sinus congestion Pertinent Findings facial pain 06/01/2014 None sinus congestion Pertinent Findings Denies vomiting 06/01/2014 None fever Onset and Resolution ongoing 06/01/2014 None fever Quality acute None fever Triggers no known associated factors 06/01/2014 None fever Alleviating Factors Tylenol 06/01/2014 None hyperlipidemia Onset and Resolution ongoing 10/26/2013 None hyperlipidemia Onset of Symptom during adulthood 10/26/2013 None hyperlipidemia Severity mild 10/26/2013 None hyperlipidemia Significant Family History hyperlipidemia 10/26/2013 None hyperlipidemia Pertinent Findings Denies obesity 10/26/2013 None hyperlipidemia Pertinent Findings Denies nausea 10/26/2013 None hyperlipidemia Pertinent Findings insulin resistance 10/26/2013 None hyperlipidemia Exacerbating Factors diet 10/26/2013 None diabetes mellitus Quality acute 12/09/2012 elevated hgb a1c diabetes mellitus Test results HgbA1c level 6.2 12/09/2012 None diabetes mellitus Glucose monitoring does not test 12/09/2012 None diabetes mellitus Nutrition regular diet 12/09/2012 None diabetes mellitus Exercise moderate exercise 12/09/2012 None diabetes mellitus Onset of Symptom onset as an adult 12/09/2012 None diabetes mellitus Pertinent Findings Denies vomiting 12/09/2012 None diabetes mellitus Pertinent Findings Denies dehydration 12/09/2012 None diabetes mellitus Pertinent Findings Denies fruity breath 12/09/2012 None diabetes mellitus Pertinent Findings Denies increased hunger 12/09/2012 None diabetes mellitus Pertinent Findings Denies lethargy 12/09/2012 None hyperlipidemia Onset of Symptom 4-5 years ago 12/07/2012 None hyperlipidemia Severity mild 12/07/2012 None hyperlipidemia Triggers no known associated factors 12/07/2012 None hyperlipidemia Alleviating Factors medication 12/07/2012 None hyperlipidemia Exacerbating Factors diet 12/07/2012 None hyperlipidemia Quality chronic 12/07/2012 None hyperlipidemia Quality decreased HDL 12/07/2012 None hyperlipidemia Quality increased LDL 12/07/2012 None hyperlipidemia Pertinent Findings Denies nausea 12/07/2012 None hyperlipidemia Pertinent Findings obesity 12/07/2012 None Advance Directives No Advance Directive data Encounters Encounter Performer Location Codes Date 67026 EST. PATIENT, LEVEL III Diagnosis: Gastro-esophageal reflux disease without esophagitis[ICD10: K21.9] Yasemin Alvarez MD, [facility] CPT-4: 09782 04/15/2017 ([id number]) [id number] EST. PATIENT, LEVEL III Diagnosis: Impaired fasting glucose[ICD10: R73.01] Diagnosis: Mixed hyperlipidemia[ICD10: E78.2] Diagnosis: Encounter for immunization[ICD10: Z23] Jeaneth Alvarez MD, [facility] CPT-4: 26331 02/19/2016 ([id number]) 77849 EST. PATIENT, LEVEL III Diagnosis: Mixed hyperlipidemia[ICD10: E78.2] Diagnosis: Impaired fasting glucose[ICD10: R73.01] Jeaneth Alvarez MD, [facility] CPT-4: 84059 01/18/2015 ([id number]) 21875 EST. PATIENT, LEVEL III Diagnosis: ACUTE URI[ICD9: 465.9] Diagnosis: COUGH[ICD9: 786.2] Jeaneth Alvarez MD, [facility] CPT-4: 13026 06/01/2014 ([id number]) [id number] EST. 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] Diagnosis: Elevated blood sugar[ICD9: 790.29] Carmella Alvarez MD, [facility] CPT-4: 22846 12/09/2012 ([id number]) OFFICE VISIT, NEW - LEVEL 3 Diagnosis: HYPERLIPIDEMIA[ICD9: 272.4] Diagnosis: Abnormal glucose[ICD9: 790.29] Diagnosis: Change in skin moles[ICD9: 216.9] [facility] CPT-4: 02046 12/07/2012 Plan of Care Planned Activity Notes Codes Status Date Appointment: Yasemin Awan WPtel: [address] [place], [place] [id number] [place] (30 min) Complex 04/15/2017 Patient Education: Patient Medication Summary Completed 04/15/2017 Appointment: Jeaneth Ocampo WPtel: [phone] [phone] (15 min) Moderate 02/19/2016 Patient Education: Patient Medication Summary Completed 02/19/2016 Appointment: (30 min) Complex 01/18/2015 Patient Education: Patient Medication Summary Completed 01/18/2015 Appointment: Sick 06/01/2014 Patient Education: Patient Medication Summary Completed 06/01/2014 Appointment: Carmella Alvarez WPtel: [facility] Follow up 10/26/2013 Patient Education: Patient Medication Summary Completed 10/26/2013 Appointment: Jeaneth Ocampo WPtel: [phone] [phone] Injection 02/08/2013 Patient Education: Patient Medication Summary Completed 02/08/2013 Appointment: Jeaneth Ocampo WPtel: [phone] Other 12/09/2012 Patient Education: Patient Medication Summary Completed 12/09/2012 Patient Education: .Amazing charts Diabetic meal planning guide Completed 12/09 Appointment: Carmella Alvarez WPtel: [phone] [facility] New Patient 12/07/2012 Patient Education: Patient Medication Summary Completed 12/07/2012 Instructions No Instructions
--- OUTSIDE RECORDS SUMMARY | 2017-06-04 13:48 | XMS REPORT | CCD ---
Author Author Carmella Alvarze MD, [facility] Address [address] [place] [address] Phone Care Team Providers Care Senior Director Name Role Phone PP Unavailable CCM Unavailable Summary Purpose Interface Exchange Insurance Providers Payer name Policy type / Coverage type Covered democrat ID Effective Begin Date Effective End Date WPS Medicare Part B Medicare Part B [id number] Unknown Add[employer] Medicare Part B [id number] Unknown Family history Daughter Diagnosis Age At [...] Unknown Retired 12/07/[address]: 793741792 Never smoker 12/07/2012 Alcohol history Unknown occasionally [...] ICD-9 : 790.29 Active 10/26/2013 Unknown 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 ICD-9: V65.3 Active 10/26/2013 Unknown HYPERLIPIDEMIA ICD-9: [...] glucose ICD-9 : 790.29 10/26/2013 Active 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 ICD-9: V65.3 10/26/2013 Active HYPERLIPIDEMIA ICD-9: 272.4 10/26/2013 Active VACCIN FOR INFLUENZA ICD-9: V04.81 02/08/2013 Active Hyperlipidemia Unknown 12/07/2012 Active Change in skin moles ICD-9: 216.9 12/07/2012 Active Medications Medication Codes Instructions Start Date Stop Date Status Fill Instructions Prilosec OTC 20 mg tablet,delayed release RxNorm: 005819 1 Tablet(s) PO BID 05/12/2017 08/09/2017 Active Carafate 1 gram tablet RxNorm: 780659 1 Tablet(s) PO AC & HS as needed 04/15/2017 05/14/2017 Inactive Prilosec OTC 20 mg tablet,delayed release RxNorm: 157760 1 Tablet(s) PO BID 04/15/2017 05/11/2017 Inactive simvastatin 20 mg tablet RxNorm: 084216 TAKE ONE TABLET BY MOUTH ONCE DAILY IN THE EVENING 04/08/2017 07/06/2017 Active simvastatin 20 mg tablet RxNorm: 416013 TAKE ONE TABLET BY MOUTH ONCE DAILY IN THE EVENING 01/16/2017 04/07/2017 Inactive simvastatin 20 mg tablet RxNorm: 220515 TAKE ONE TABLET BY MOUTH ONCE DAILY IN THE EVENING 07/14/2016 01/09/2017 Inactive simvastatin 20 mg tablet RxNorm: 415589 TAKE ONE TABLET BY MOUTH ONCE DAILY IN THE EVENING 01/14/2016 07/11/2016 Inactive simvastatin 20 mg tablet RxNorm: 621370 1 Tablet(s) QPM TAKE ONE TABLET BY MOUTH ONCE DAILY 01/18/2015 01/12/2016 Inactive Flonase 50 mcg/actuation nasal spray,suspension RxNorm: 643630 2 [place] NASAL daily 06/01/2014 06/07/2014 Inactive simvastatin 20 mg tablet RxNorm: 400873 1 Tablet(s) QPM TAKE ONE TABLET BY MOUTH ONCE DAILY 06/01/2014 12/27/2014 Inactive Kenalog 40 mg/mL suspension for injection RxNorm: 3246684 1 Milliliter(s) Inj 06/01/2014 06/01/2014 Inactive ceftriaxone 500 mg solution for injection RxNorm: 020534 Inj 06/01/2014 Inactive Augmentin 500 mg-125 mg tablet RxNorm: 305517 1 Tablet(s) PO TID 06/01/2014 06/07/2014 Inactive simvastatin 20 mg tablet RxNorm: 872210 TAKE ONE TABLET BY MOUTH IN THE EVENING 03/23/2014 04/21/2014 Inactive simvastatin 20 mg tablet RxNorm: 683771 1 Tablet(s) QPM TAKE ONE TABLET BY MOUTH ONCE DAILY 03/21/2014 05/31/2014 Inactive simvastatin 20 mg tablet RxNorm: 331084 1 Tablet(s) QPM TAKE ONE TABLET BY MOUTH ONCE DAILY 10/26/2013 03/20/2014 Inactive simvastatin 20 mg tablet RxNorm: 675507 TAKE ONE TABLET BY MOUTH ONCE DAILY 10/18/2013 10/25/2013 Inactive simvastatin 20 mg tablet RxNorm: 041576 1 Tablet(s) PO daily 10/13/2013 Inactive simvastatin 20 mg tablet RxNorm: 584201 1 Tablet(s) PO daily No Start Date 06/15/2013 Inactive Medication Administered Medication Codes Instructions Start Date Status ceftriaxone 500 mg solution for injection RxNorm: 204620 06/01/2014 No longer Active Kenalog 40 mg/mL suspension for injection RxNorm: 9858362 1Milliliter 06/01/2014 No longer Active Immunizations Vaccine Codes Date Status Influenza CVX: 141 12/18/2016 completed Pneumococcal (Adult) CVX: 133 02/19/2016 completed Influenza CVX: 141 12/20/2015 completed Influenza CVX: 141 01/18/2015 completed Influenza CVX: 141 02/08/2013 completed Pneumococcal CVX: 33 02/04/2012 completed Assessments Condition Codes Effective Dates Gastro-esophageal reflux disease without esophagitis ICD-10 : K21.9 ICD-9: 530.81 04/15/2017 Mixed hyperlipidemia ICD-10: E78.2 ICD-9: 272.4 02/19/2016 Encounter for immunization ICD-10: Z23 ICD-9: V03.82 02/19/2016 Impaired fasting glucose ICD-10: R73.01 ICD-9: 790.21 02/19/2016 Encounter for immunization ICD-10: Z23 ICD-9: V04.81 01/18/2015 ACUTE URI ICD-9: 465.9 06/01/2014 COUGH ICD-9: 786.2 06/01/2014 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 ICD-9: V65.3 12/2013 Abnormal glucose ICD-9: 790.29 2013 HYPERLIPIDEMIA ICD-9: 272.4 10/26/2013 VACCIN FOR INFLUENZA ICD-9: V04.81 2012 Change in skin moles ICD-9: 216.9 2012 Reason For Visit Reason For Visit Effective Dates Notes abdominal pain 04/15/2017 hyperlipidemia 02/19/2016 hyperlipidemia 01/18/2015 cough 06/01/2014 hyperlipidemia 10/26/2013 vaccination against influenza 02/08/2013 diabetes mellitus 12/09/2012 hyperlipidemia 12/07/2012 Results Observation Observation Code Item Item Code Result Date %Hba1C Ieh029 % HbA1c 78789-7 6.2 % 02/20/2016 %Hba1C Mjl085 Gluc Ave 131 mg/dL 02/20/2016 Lipid Ord30 CHOL 175 mg/dL 02/20/2016 Lipid Ord30 HDL 47.0 mg/dl 02/20/2016 Lipid Ord30 TRIG 105 mg/dL 02/20/2016 Lipid Ord30 LDL 107 mg/dL 02/20/2016 Lipid Ord30 C/HDL 3.7 Ratio 02/20/2016 Tsh Ord6 hTSH II 2.62 uIU/mL 02/20/2016 Comp Metabolic Mfq007 NA 139 mEq/L 02/20/2016 Comp Metabolic Nhc946 K 4.3 mEq/L 02/20/2016 Comp Metabolic Kig954 CL 106 mEq/L 02/20/2016 Comp Metabolic Uys519 CO2 26.0 mEq/L 02/20/2016 Comp Metabolic Jwc322 ANION GAP 11 02/20/2016 Comp Metabolic Coa795 GLUCOSE 126 mg/dL 02/20/2016 Comp Metabolic Vkn320 Creat 0.8 mg/dL 02/20/2016 Comp Metabolic Ofn092 eGFR 74 ml/min/1.73m2 02/20/2016 Comp Metabolic Pqt526 BUN 9 mg/dL 02/20/2016 Comp Metabolic Hlv364 B/C Ratio 11.0 Ratio 02/20/2016 Comp Metabolic Hcq850 CALCIUM 9.0 mg/dL 02/20/2016 Comp Metabolic Ghv993 ALK PHOS 76 U/L 02/20/2016 Comp Metabolic Uow947 AST(SGOT) 15 U/L 02/20/2016 Comp Metabolic Zyb064 ALT(SGPT) 14 U/L 02/20/2016 Comp Metabolic Sqg560 BILI T 0.8 mg/dL 02/20/2016 Comp Metabolic Nmg435 ALBUMIN 4.1 g/dL 02/20/2016 Comp Metabolic Qok659 TPRO 6.6 g/dL 02/20/2016 Comp Metabolic Dks805 GLOB 2.5 g/dL 02/20/2016 Comp Metabolic Ask734 A/G Ratio 1.6 Ratio 02/20/2016 Comp Metabolic Kun033 Osmo 278 mOsmo 02/20/2016 Cbc With Differential [...] 36.8 % 02/20/2016 Cbc With Differential Ord2 MCH 30.7 pg 02/20/2016 Cbc With Differential Ord2 [place]% 7.3 % 02/20/2016 Cbc With Differential Ord2 MCHC 33.3 pg 02/20/2016 Cbc With Differential Ord2 Eos% 1.4 % 02/20/2016 Cbc With Differential Ord2 Baso% 0.3 % 02/20/2016 Cbc With Differential Ord2 PLT 205 K/ul 02/20/2016 Cbc With Differential Ord2 RDW 13.0 % 02/20/2016 Cbc With Differential Ord2 Neut ABS# 3.41 K/ul 02/20/2016 Cbc With Differential Ord2 Lymph ABS# 2.32 K/ul 02/20/2016 Cbc With Differential Ord2 [place] ABS# 0.5 K/ul 02/20/2016 Cbc With Differential Ord2 Eos ABS# 0.1 K/ul 02/20/2016 Cbc With Differential Ord2 Baso ABS# 0.0 K/ul 02/20/2016 Comp Metabolic Nfv952 NA 139 mEq/L 01/19/2015 Comp Metabolic Jlc512 K 4.4 mEq/L 01/19/2015 Comp Metabolic Tdy293 CL 105 mEq/L 01/19/2015 Comp Metabolic Uze323 CO2 29.0 mEq/L 01/19/2015 Comp Metabolic Jci099 ANION GAP 9 01/19/2015 Comp Metabolic Due484 GLUCOSE 128 mg/dL 01/19/2015 Comp Metabolic Vsl628 Creat 0.8 mg/dL 01/19/2015 Comp Metabolic Oej104 eGFR 74 ml/min/1.73m2 01/19/2015 Comp Metabolic Svc005 BUN 11 mg/dL 01/19/2015 Comp Metabolic Qup301 B/C Ratio 13.4 Ratio 01/19/2015 Comp Metabolic Yjn169 CALCIUM 9.1 mg/dL 01/19/2015 Comp Metabolic Jjb803 ALK PHOS 81 U/L 01/19/2015 Comp Metabolic Obq666 AST(SGOT) 15 U/L 01/19/2015 Comp Metabolic Run547 ALT(SGPT) 14 U/L 01/19/2015 Comp Metabolic Dik649 BILI T 0.8 mg/dL 01/19/2015 Comp Metabolic Rrv513 ALBUMIN 4.2 g/dL 01/19/2015 Comp Metabolic Xjc727 TPRO 6.7 g/dL 01/19/2015 Comp Metabolic Gue941 GLOB 2.5 g/dL 01/19/2015 Comp Metabolic Hql384 A/G Ratio 1.7 Ratio 01/19/2015 Comp Metabolic Uca794 Osmo 279 mOsmo 01/19/2015 Cbc With Differential Ord2 WBC 5.9 K/uL [...] Lipid Ord30 C/HDL 3.7 Ratio 01/19/2015 %Hba1C Ltj611 % HbA1c 53235-5 6.1 % 01/19/2015 %Hba1C Kkj251 Gluc Ave 128 mg/dL 01/19/2015 Review of Systems System Result Effective [...] tenderness 10/26/2013 None Full Exam - General 1995 Abdomen abdominal exam Overall: normal bowel sounds 10/26/2013 None Full Exam - General 1995 Abdomen liver and spleen exam Overall: no hepatosplenomegaly 10/26/2013 None Full Exam - General 1994 Abdomen liver and spleen exam Overall: no stigmata of chronic liver disease 10/26/2013 None Full Exam - General 1995 Lymphatic neck nodes Overall: anterior cervical chain benign 10/26/2013 None Full Exam - General 1995 Lymphatic neck nodes Overall: posterior cervical chain [...] above bra clasp - dark center with traffic 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 Full Exam - General [...] accomodation 12/07/2012 None Full Exam - General 1995 Ears/Nose/Throat otoscopic exam Overall: tympanic membranes clear 12/07/2012 None Full Exam - General 1995 Ears/Nose/Throat otoscopic exam Overall: external auditory canals clear 12/07/2012 None Full Exam - General 1994 Ears/Nose/Throat oral cavity/pharynx/larynx Overall: oropharyngeal mucosa clear 12/07/2012 None Full Exam - General 1994 Ears/Nose/Throat oral cavity/pharynx/larynx Overall: no masses 12/07/2012 [...] disease 12/07/2012 None Full Exam - General 1995 Lymphatic neck nodes Overall: anterior cervical chain benign 12/07/2012 None Full Exam - General 1994 Lymphatic neck nodes Overall: posterior cervical chain benign 12/07/2012 None Full Exam - General 1995 Musculoskeletal head and neck Overall: cervical spine benign 12/07/2012 None Full Exam - General 1995 Musculoskeletal head and neck Overall: head atraumatic 12/07/2012 None Full Exam - General 1995 Musculoskeletal spine, ribs and pelvis Overall: good [...] above bra clasp - dark center with traffic 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 Procedures Procedure Codes Date THER/PROPH/DIAG INJ SC/IM CPT-4: 93794 02/19/2016 PNEUMOCOCCAL VACC [address]: 21834238 CPT-4: 13918 02/19/2016 FLU VACC 4 ANIKA 3 YRS PLUS IM Formatting Model/CDA Sections, Assigned to SNOMED CT: 70362063 CPT-4: 36702Hvyhyrh 01/18/2015 ADMIN INFLUENZA VIRUS VAC Formatting Model/CDA Sections, Assigned to CPT-4: J7631Ewxxeym 01/18/2015 TRIAMCINOLONE ACET INJ NOS CPT-4: J3301 06/01/2014 ROCEPHIN, PER 250 MG CPT-4: J0696 06/01/2014 IMMUNIZATION ADMIN CPT -4: 93948 02/08/2013 Influenza Virus Vaccine, Split Virus, >3 Yrs, IM CPT-4: 28594 02/08/2013 Vital Signs Date Vital 04/15/2017 Blood Pressure 1: 136/72 Code : 8480-6 BMI: 35.0 Code : 16569-7 Heart Rate 1 : 80 bpm Height: 5' SpO2: 98% Weight: 179 lbs 02/19/2016 Blood Pressure 1: 130/80 Code : 8480-6 BMI: 35.9 Code : 39991-2 Heart Rate 1 : 75 bpm Height: 5' SpO2: 95% Weight: 184 lbs 01/18/2015 Blood Pressure 1: 142/80 Code : 8480-6 BMI: 34.8 Code : 42116-0 Heart Rate 1 : 76 bpm Height: 5' Weight: 178 lbs 06/01/2014 Blood Pressure 1: 146/88 Code : 8480-6 BMI: 33.4 Code : 60911-7 Heart Rate 1 : 84 bpm Height: 5' Temperature: 37.0 (C) / 98.6 (F) Weight: 171 lbs 10/26/2013 Blood Pressure 1: 142/84 Code : 8480-6 BMI: 30.5 Code : 58033-0 Heart Rate 1 : 60 bpm Height: 5' Weight: 156 lbs 12/09/2012 Blood Pressure 1: 132/90 Code : 8480-6 Heart Rate 1: 56 bpm Weight: 12/07/2012 Blood Pressure 1: 130/82 Code : 8480-6 BMI: 35.2 Code : 92326-8 Heart Rate 1 : 80 bpm Height: [...] data Encounters Encounter Performer Location Codes Date 25516 EST. PATIENT, LEVEL III Diagnosis: Gastro-esophageal reflux disease without esophagitis[ICD10: K21.9] [facility] CPT-4: 81374 04/15/2017 ([id number]) 49689 EST. PATIENT, LEVEL III Diagnosis: Impaired fasting glucose[ICD10: R73.01] Diagnosis: Mixed hyperlipidemia[ICD10: E78.2] Diagnosis: Encounter for immunization[ICD10: Z23] Jeaneth Alvarez MD, [facility] CPT-4: 99808 02/19/2016 ([id number]) 13441 EST. PATIENT, LEVEL III Diagnosis: Mixed hyperlipidemia[ICD10: E78.2] Diagnosis: Impaired fasting glucose[ICD10: R73.01] [facility] CPT-4: 35136 01/18/2015 ([id number]) 19778 EST. PATIENT, LEVEL III Diagnosis: ACUTE URI[ICD9: 465.9] Diagnosis: COUGH[ICD9: 786.2] Jeaneth Alvarez MD, [facility] CPT-4: 21587 06/01/2014 ([id number]) 70225 EST. PATIENT, LEVEL III Diagnosis: HYPERLIPIDEMIA[ICD9: 272.4] Diagnosis: Abnormal glucose[ICD9: 790.29] Diagnosis: 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[ICD9: V65.3] Carmella Alvarez MD, [facility] CPT-4: 72250 10/26/2013 ([id number]) 88949 EST. PATIENT, LEVEL III Diagnosis: 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[ICD9: V65.3] Diagnosis: Elevated blood sugar[ICD9: 790.29] Carmella Alvarez MD, [facility] CPT-4: 13665 12/09/2012 ([id number]) OFFICE VISIT, NEW - LEVEL 3 Diagnosis: HYPERLIPIDEMIA[ICD9: 272.4] Diagnosis: Abnormal glucose[ICD9: 790.29] Diagnosis: Change in skin moles[ICD9: 216.9] [facility] CPT-4: 32238 12/07/2012 Plan of Care Planned Activity Notes Codes Status Date Visit Plan: Esophageal Reflux - the patient has been counseled against excessive intake of caffeine, spicy foods, peppermint, and cinnamon - all of which can exacerbate esophageal reflux. The patient is to take medications as prescribed and call the office if the symptoms are not improving. 04/15/2017 App[facility]ment[phone] [facility] (30 min) Complex 04/15/2017 Patient Education: Patient Medication Summary Completed 04/15/2017 Visit Plan: Elevated blood sugars-check hgb A1C Hyperlipidemia - pt has been counseled about appropriate diet, exercise, and need for low fat food choices. I have discussed the need for the patient to take medications as prescribed. If the patient has negative side effects from the medication, they are to CALL the office and not abruptly discontinue the medication without discussion with a practitioner in the office. We will check labs in 3-6 months for follow up on the patient's chronic medical problem and to assure normal liver response to medications. 02/19/2016 Visit Plan: Elevated blood sugars-check hgb A1C Hyperlipidemia - pt has been counseled about appropriate diet, exercise, and need for low fat food choices. I have discussed the need for the patient to take medications as prescribed. If the patient has negative side effects from the medication, they are to CALL the office and not abruptly discontinue the medication without discussion with a practitioner in the office. We will check labs in 3-6 months for follow up on the patient's chronic medical problem and to assure normal liver response to medications. 02/19/2016 Appointment: [facility] [phone] [phone] (15 min) Moderate 02/19/2016 Patient Education: Patient Medication Summary Completed 02/19/2016 Visit Plan: Hyperlipidemia - pt has been counseled about appropriate diet, exercise, and need for low fat food choices. I have discussed the need for the patient to take medications as prescribed. If the patient has negative side effects from the medication, they are to CALL the office and not abruptly discontinue the medication without discussion with a practitioner in the office. We will check labs in 3-6 months for follow up on the patient's chronic medical problem and to assure normal liver response to medications. Elevated blood sugars-check Hgb A1C Influenza vaccine today in the office 01/18/2015 Appointment: (30 min) Complex 01/18/2015 Patient Education: Patient Medication Summary Completed 01/18/2015 Visit Plan: URI - Pt advised to increase fluids, vitamin C. Discussed natural and expected course of this diagnosis and need to alert me if symptoms do not follow expected course, or if any worse. RX sent to patient' s pharmacy. Rocephin and kenalog injections today in the office. 06/01/2014 Appointment: Sick 06/01/2014 Patient Education: Patient Medication Summary Completed 06/01/2014 Visit Plan: Well Adult - pt was counseled about diet, exercise, and encouraged to follow a heart healthy diet and increase acrtivity level. The patient was instructed to RTC yearly for well adult exams and PRN for acute illnesses. The pt was also instructed to have yearly labs for check of cholesterol, thyroid, chem panel, CBC, and renal functioning. 10/26/2013 Appointment: Carmella Alvarez WPtel: [phone] [facility] Follow up 10/26/2013 Patient Education: Patient Medication Summary Completed 10/26/2013 Appointment: Jeaneth Ocampo WPtel: [phone] [phone] Injection 02/08/2013 Patient Education: Patient Medication Summary Completed 02/08/2013 Visit Plan: Elevated blood sugars-diet education-discussed diabetes and diabetes diet with patient today in the office-handouts regarding diabetes provided for patient. Recommend patient cut back on carbs-white breads , pastas, potatoes and eliminate soda as well as increase protein. Continue with regular exercise. Plan to repeat labs in a few months. Patient verbalized understanding of plan. 12/09/2012 Appointment: Jeaneth Ocampo WPtel: [phone] [phone] Other 12/09/2012 Patient Education: Patient Medication Summary Completed 12/09/2012 Patient Education: .Amazing charts Diabetic meal planning guide Completed 12/09 Visit Plan: Hyperlipidemia - pt has been counseled about appropriate diet, exercise, and need for low fat food choices. I have discussed the need for the patient to take medications as prescribed. If the patient has negative side effects from the medication, they are to CALL the office and not abruptly discontinue the medication without discussion with a practicioner in the office. We will check labs in 3-6 months for follow up on the patient's chronic medical problem and to assure normal liver response to medications. Elevated glucose - recommended pt to get Hgba1c - She has a daughter who is a Type I diabetic - she understand that she she needs to have dietary counseling. I have also recommended increased physical activity - attempt to loose another 10 pounds in the next few months - goal for total weight loss is 30#. Mole on back - recommended removal after pt returns from vacation in [place]. 12/07/2012 Appointment: Carmella Alvarez WPtel[facility] New Patient 12/07/2012 Patient Education: Patient Medication Summary Completed 12/07/2012 Instructions Comment . Hyperlipidemia - pt has been counseled about appropriate diet, exercise, and need for low fat food choices. I have discussed the need for the patient to take medications as prescribed. If the patient has negative side effects from the medication, they are to CALL the office and not abruptly discontinue the medication without discussion with a practicioner in the office. We will check labs in 3-6 months for follow up on the patient's chronic medical problem and to assure normal liver response to medications. Elevated glucose - recommended pt to get Hgba1c - She has a daughter who is a Type I diabetic - she understand that she she needs to have dietary counseling. I have also recommended increased physical activity - attempt to loose another 10 pounds in the next few months - goal for total weight loss is 30#. Mole on back - recommended removal after pt returns from vacation in [place]. . Well Adult - pt was counseled about diet, exercise, and encouraged to follow a heart healthy diet and increase acrtivity level. The patient was instructed to RTC yearly for well adult exams and PRN for acute illnesses. The pt was also instructed to have yearly labs for check of cholesterol, thyroid, chem panel, CBC, and renal functioning. . Esophageal Reflux - the patient has been counseled against excessive intake of caffeine, spicy foods, peppermint, and cinnamon - all of which can exacerbate esophageal reflux. The patient is to take medications as prescribed and call the office if the symptoms are not improving. . Hyperlipidemia - pt has been counseled about appropriate diet, exercise, and need for low fat food choices. I have discussed the need for the patient to take medications as prescribed. If the patient has negative side effects from the medication, they are to CALL the office and not abruptly discontinue the medication without discussion with a practitioner in the office. We will check labs in 3-6 months for follow up on the patient's chronic medical problem and to assure normal liver response to medications. Elevated blood sugars-check Hgb A1C Influenza vaccine today in the office CHECK FASTING LABS CALL WHEN YOU GET BACK FROM [place] AND WE WILL SCHEDULE YOUR MAMMOGRAM . Elevated blood sugars-check hgb A1C Hyperlipidemia - pt has been counseled about appropriate diet, exercise, and need for low fat food choices. I have discussed the need for the patient to take medications as prescribed. If the patient has negative side effects from the medication, they are to CALL the office and not abruptly discontinue the medication without discussion with a practitioner in the office. We will check labs in 3-6 months for follow up on the patient's chronic medical problem and to assure normal liver response to medications. CHECK FASTING LABS CALL WHEN YOU GET BACK FROM [place] AND WE WILL SCHEDULE YOUR MAMMOGRAM . Elevated blood sugars-check hgb A1C Hyperlipidemia - pt has been counseled about appropriate diet, exercise, and need for low fat food choices. I have discussed the need for the patient to take medications as prescribed. If the patient has negative side effects from the medication, they are to CALL the office and not abruptly discontinue the medication without discussion with a practitioner in the office. We will check labs in 3-6 months for follow up on the patient's chronic medical problem and to assure normal liver response to medications. . Elevated blood sugars-diet education-discussed diabetes and diabetes diet with patient today in the office-handouts regarding diabetes provided for patient. Recommend patient cut back on carbs-white breads, pastas, potatoes and eliminate soda as well as increase protein. Continue with regular exercise. Plan to repeat labs in a few months. Patient verbalized understanding of plan. phenergan with codeine-[facility] . URI - Pt advised to increase fluids, vitamin C. Discussed natural and expected course of this diagnosis and need to alert me if symptoms do not follow expected course, or if any worse. RX sent to patient's pharmacy. Rocephin and kenalog injections today in the office.
--- OUTSIDE RECORDS SUMMARY | 2017-06-04 13:49 | XMS REPORT | CCD ---
Author Author Carmella Alvarez Organization Carmella Alvarez MD, [facility] Address [address] [place] [address] Phone Care Team Providers Care Architectural Designer Name Role Phone PP Unavailable CCM Unavailable Summary Purpose Interface Exchange Insurance Providers Payer name Policy type / Coverage type Covered libertarian ID Effective Begin Date Effective End Date WPS Medicare Part B Medicare Part B [id number] Unknown [place] Medicare Part B [id number] Unknown Family history Daughter Diagnosis Age At [...] Unknown Retired 12/07/[address]: 122521953 Never smoker 12/07/2012 Alcohol history Unknown occasionally drinks alcohol 12/07/2012 Has the patient ever used illegal drugs? Unknown Has never used illegal drugs 12/07/2012 Allergies, Adverse Reactions, Alerts Allergies, Adverse Reactions, Alerts data not found Past Medical History Illness Codes Condition Status Onset Date Resolved Date Encounter for immunization ICD-9: V03.82 ICD-10: Z23 Active 02/18/2016 Unknown Impaired fasting glucose ICD-9: 790.21 ICD-10: R73.01 Active 02/18/2016 Unknown Mixed hyperlipidemia ICD-9: 272.4 ICD-10: E78.2 Active 12/07/2012 Unknown ACUTE URI ICD-9: 465.9 Active 06/01/2014 Unknown COUGH ICD-9: 786.2 Active 06/01/2014 Unknown Abnormal glucose ICD-9 : 790.29 Active 10/26/2013 Unknown 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 Active 10/26/2013 Unknown HYPERLIPIDEMIA ICD-9: 272.4 Active 10/26/2013 Unknown VACCIN FOR INFLUENZA ICD-9: V04.81 Active 02/08/2013 Unknown Hyperlipidemia Unknown Active 12/07/2012 Unknown Change in skin moles ICD-9: 216.9 Active 12/07/2012 Unknown Problems Condition Codes Effective Dates Condition Status Encounter for immunization ICD-9: V03.82 ICD-10: Z23 02/18/2016 Active Impaired fasting glucose ICD-9: 790.21 ICD-10: R73.01 02/18/2016 Active Mixed hyperlipidemia ICD-9: 272.4 ICD-10: E78.2 12/07/2012 Active ACUTE URI ICD-9: 465.9 06/01/2014 Active COUGH ICD-9: 786.2 06/01/2014 Active Abnormal glucose ICD-9 : 790.29 10/26/2013 Active 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 10/26/2013 Active HYPERLIPIDEMIA ICD-9: 272.4 10/26/2013 Active VACCIN FOR INFLUENZA ICD-9: V04.81 02/08/2013 Active Hyperlipidemia Unknown 12/07/2012 Active Change in skin moles ICD-9: 216.9 12/07/2012 Active Medications Medication Codes Instructions Start Date Stop Date Status Fill Instructions Prilosec OTC 20 mg tablet,delayed release RxNorm: 365590 1 Tablet(s) PO BID 05/12/2017 08/09/2017 Active Carafate 1 gram tablet RxNorm: 008207 1 Tablet(s) PO AC & HS as needed 04/15/2017 05/14/2017 Active Prilosec OTC 20 mg tablet,delayed release RxNorm: 091130 1 Tablet(s) PO BID 04/15/2017 05/11/2017 Inactive simvastatin 20 mg tablet RxNorm: 958390 TAKE ONE TABLET BY MOUTH ONCE DAILY IN THE EVENING 04/08/2017 07/06/2017 Active simvastatin 20 mg tablet RxNorm: 243298 TAKE ONE TABLET BY MOUTH ONCE DAILY IN THE EVENING 01/16/2017 04/07/2017 Inactive simvastatin 20 mg tablet RxNorm: 889082 TAKE ONE TABLET BY MOUTH ONCE DAILY IN THE EVENING 07/14/2016 01/09/2017 Inactive simvastatin 20 mg tablet RxNorm: 227432 TAKE ONE TABLET BY MOUTH ONCE DAILY IN THE EVENING 01/14/2016 07/11/2016 Inactive simvastatin 20 mg tablet RxNorm: 614885 1 Tablet(s) QPM TAKE ONE TABLET BY MOUTH ONCE DAILY 01/18/2015 01/12/2016 Inactive Flonase 50 mcg/actuation nasal spray,suspension RxNorm: 822840 2 [place] NASAL daily 06/01/2014 06/07/2014 Inactive simvastatin 20 mg tablet RxNorm: 580343 1 Tablet(s) QPM TAKE ONE TABLET BY MOUTH ONCE DAILY 06/01/2014 12/27/2014 Inactive Kenalog 40 mg/mL suspension for injection RxNorm: 4652575 1 Milliliter(s) Inj 06/01/2014 06/01/2014 Inactive ceftriaxone 500 mg solution for injection RxNorm: 833652 Inj 06/01/2014 Inactive Augmentin 500 mg-125 mg tablet RxNorm: 763193 1 Tablet(s) PO TID 06/01/2014 06/07/2014 Inactive simvastatin 20 mg tablet RxNorm: 839849 TAKE ONE TABLET BY MOUTH IN THE EVENING 03/23/2014 04/21/2014 Inactive simvastatin 20 mg tablet RxNorm: 461914 1 Tablet(s) QPM TAKE ONE TABLET BY MOUTH ONCE DAILY 03/21/2014 05/31/2014 Inactive simvastatin 20 mg tablet RxNorm: 482234 1 Tablet(s) QPM TAKE ONE TABLET BY MOUTH ONCE DAILY 10/26/2013 03/20/2014 Inactive simvastatin 20 mg tablet RxNorm: 064647 TAKE ONE TABLET BY MOUTH ONCE DAILY 10/18/2013 10/25/2013 Inactive simvastatin 20 mg tablet RxNorm: 097942 1 Tablet(s) PO daily 10/13/2013 Inactive simvastatin 20 mg tablet RxNorm: 780822 1 Tablet(s) PO daily No Start Date 06/15/2013 Inactive Medication Administered Medication Codes Instructions Start Date Status ceftriaxone 500 mg solution for injection RxNorm: 196799 06/01/2014 No longer Active Kenalog 40 mg/mL suspension for injection RxNorm: 0369665 1Milliliter 06/01/2014 No longer Active Immunizations Vaccine Codes Date Status Influenza CVX: 141 12/18/2016 completed Pneumococcal (Adult) CVX: 133 02/19/2016 completed Influenza CVX: 141 12/20/2015 completed Influenza CVX: 141 01/18/2015 completed Influenza CVX: 141 02/08/2013 completed Pneumococcal CVX: 33 02/04/2012 completed Assessments Condition Codes Effective Dates Mixed hyperlipidemia ICD-10: E78.2 ICD-9: 272.4 02/19/2016 Encounter for immunization ICD-10: Z23 ICD-9: V03.82 02/19/2016 Impaired fasting glucose ICD-10: R73.01 ICD-9: 790.21 02/19/2016 Encounter for immunization ICD-10: Z23 ICD-9: V04.81 01/18/2015 ACUTE URI ICD-9: 465.9 06/01/2014 COUGH ICD-9: 786.2 06/01/2014 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 12/2013 Abnormal glucose ICD-9: 790.29 2013 HYPERLIPIDEMIA ICD-9: 272.4 10/26/2013 VACCIN FOR INFLUENZA ICD-9: V04.81 2012 Change in skin moles ICD-9: 216.9 2012 Reason For Visit Reason For Visit Effective Dates Notes hyperlipidemia 02/19/2016 hyperlipidemia 01/18/2015 cough 06/01/2014 hyperlipidemia 10/26/2013 vaccination against influenza 02/08/2013 diabetes mellitus 12/09/2012 hyperlipidemia 12/07/2012 Results Observation Observation Code Item Item Code Result Date %Hba1C Ymk097 % HbA1c 56795-3 6.2 % 02/20/2016 %Hba1C Bar790 Gluc Ave 131 mg/dL 02/20/2016 Lipid Ord30 CHOL 175 mg/dL 02/20/2016 Lipid Ord30 HDL 47.0 mg/dl 02/20/2016 Lipid Ord30 TRIG 105 mg/dL 02/20/2016 Lipid Ord30 LDL 107 mg/dL 02/20/2016 Lipid Ord30 C/HDL 3.7 Ratio 02/20/2016 Tsh Ord6 hTSH II 2.62 uIU/mL 02/20/2016 Comp Metabolic Bdc720 NA 139 mEq/L 02/20/2016 Comp Metabolic Hkj883 K 4.3 mEq/L 02/20/2016 Comp Metabolic Ymc450 CL 106 mEq/L 02/20/2016 Comp Metabolic Vho904 CO2 26.0 mEq/L 02/20/2016 Comp Metabolic Zgb590 ANION GAP 11 02/20/2016 Comp Metabolic Mdm784 GLUCOSE 126 mg/dL 02/20/2016 Comp Metabolic Ong178 Creat 0.8 mg/dL 02/20/2016 Comp Metabolic Beh823 eGFR 74 ml/min/1.73m2 02/20/2016 Comp Metabolic Qxc134 BUN 9 mg/dL 02/20/2016 Comp Metabolic Rwn249 B/C Ratio 11.0 Ratio 02/20/2016 Comp Metabolic Mvy131 CALCIUM 9.0 mg/dL 02/20/2016 Comp Metabolic Yun269 ALK PHOS 76 U/L 02/20/2016 Comp Metabolic Nal792 AST(SGOT) 15 U/L 02/20/2016 Comp Metabolic Lcb535 ALT(SGPT) 14 U/L 02/20/2016 Comp Metabolic Xbm449 BILI T 0.8 mg/dL 02/20/2016 Comp Metabolic Ttk417 ALBUMIN 4.1 g/dL 02/20/2016 Comp Metabolic Rot028 TPRO 6.6 g/dL 02/20/2016 Comp Metabolic Osd003 GLOB 2.5 g/dL 02/20/2016 Comp Metabolic Uhb898 A/G Ratio 1.6 Ratio 02/20/2016 Comp Metabolic Pcu225 Osmo 278 mOsmo 02/20/2016 Cbc With Differential [...] 30.7 pg 02/20/2016 Cbc With Differential Ord2 Christian% 7.3 % 02/20/2016 Cbc With Differential Ord2 [...] 2.32 K/ul 02/20/2016 Cbc With Differential Ord2 Christian ABS# 0.5 K/ul 02/20/2016 Cbc With Differential Ord2 Eos ABS# 0.1 K/ul 02/20/2016 Cbc With Differential Ord2 Baso ABS# 0.0 K/ul 02/20/2016 Comp Metabolic Hha513 NA 139 mEq/L 01/19/2015 Comp Metabolic Qdz877 K 4.4 mEq/L 01/19/2015 Comp Metabolic Spi647 CL 105 mEq/L 01/19/2015 Comp Metabolic Fbc233 CO2 29.0 mEq/L 01/19/2015 Comp Metabolic Vhz246 ANION GAP 9 01/19/2015 Comp Metabolic Zwr316 GLUCOSE 128 mg/dL 01/19/2015 Comp Metabolic Cao493 Creat 0.8 mg/dL 01/19/2015 Comp Metabolic Ayn790 eGFR 74 ml/min/1.73m2 01/19/2015 Comp Metabolic Xaf619 BUN 11 mg/dL 01/19/2015 Comp Metabolic Exh884 B/C Ratio 13.4 Ratio 01/19/2015 Comp Metabolic Vgp585 CALCIUM 9.1 mg/dL 01/19/2015 Comp Metabolic Zvd018 ALK PHOS 81 U/L 01/19/2015 Comp Metabolic Sla366 AST(SGOT) 15 U/L 01/19/2015 Comp Metabolic Snh171 ALT(SGPT) 14 U/L 01/19/2015 Comp Metabolic Fvf357 BILI T 0.8 mg/dL 01/19/2015 Comp Metabolic Zik422 ALBUMIN 4.2 g/dL 01/19/2015 Comp Metabolic Knt952 TPRO 6.7 g/dL 01/19/2015 Comp Metabolic Xbp063 GLOB 2.5 g/dL 01/19/2015 Comp Metabolic Jky613 A/G Ratio 1.7 Ratio 01/19/2015 Comp Metabolic Fnn036 Osmo 279 mOsmo 01/19/2015 Cbc With Differential [...] Lipid Ord30 C/HDL 3.7 Ratio 01/19/2015 %Hba1C Sxz760 % HbA1c 20752-3 6.1 % 01/19/2015 %Hba1C Ooz789 Gluc Ave 128 mg/dL 01/19/2015 Review of Systems System Result Effective Dates Constitutional No recent illness 2015 Constitutional No [...] above bra clasp - dark center with manager cosmetics peripheral surrounding freckle. Full Exam - General [...] happy 10/26/2013 None Full Exam - General 1995 Constitutional general appearance Overall: well developed 12/09/2012 None Full Exam - General 1995 Constitutional general appearance Overall: in no acute [...] nourished 12/07/2012 None Full Exam - General 1995 Constitutional general appearance Overall: well developed 12/07/2012 [...] - General 1995 Ears/Nose/Throat oral cavity/pharynx/larynx Overall: oropharyngeal mucosa clear [...] lesions 12/07/2012 None Full Exam - General 1995 Neck thyroid Overall: normal consistency 12/07/2012 None Full Exam - General 1994 Respiratory respiratory effort/rhythm Overall: normal rate 12/07/2012 None Full Exam - General 1994 Respiratory respiratory effort/rhythm Overall: no retractions 12/07/2012 None Full Exam - General 1995 Respiratory auscultation Overall: breath sounds clear bilaterally [...] above bra clasp - dark center with manager cosmetics peripheral surrounding freckle. Procedures Procedure Codes Date THER/PROPH/DIAG INJ SC/IM CPT-4: 22996 02/19/2016 PNEUMOCOCCAL VACC [address]: 50966150 CPT-4: 22912 02/19/2016 FLU VACC 4 ANIKA 3 YRS PLUS IM Formatting Model/CDA Sections, Assigned to SNOMED CT: 22677605 CPT-4: 37285Gylefjx 01/18/2015 ADMIN INFLUENZA VIRUS VAC Formatting Model/CDA Sections, Assigned to CPT-4: I3264Wyqnuzt 01/18/2015 TRIAMCINOLONE ACET INJ NOS CPT-4: J3301 06/01/2014 ROCEPHIN, PER 250 MG CPT-4: J0696 06/01/2014 IMMUNIZATION ADMIN CPT -4: 75086 02/08/2013 Influenza Virus Vaccine, Split Virus, >3 Yrs, IM CPT-4: 55261 02/08/2013 Vital Signs Date Vital 02/19/2016 Blood Pressure 1: 130/80 Code : 8480-6 BMI: 35.9 Code : 68701-9 Heart Rate 1 : 75 bpm Height: 5' SpO2: 95% Weight: 184 lbs 01/18/2015 Blood Pressure 1: 142/80 Code : 8480-6 BMI: 34.8 Code : 77151-2 Heart Rate 1 : 76 bpm Height: 5' Weight: 178 lbs 06/01/2014 Blood Pressure 1: 146/88 Code : 8480-6 BMI: 33.4 Code : 73098-8 Heart Rate 1 : 84 bpm Height: 5' Temperature: 37.0 (C) / 98.6 (F) Weight: 171 lbs 10/26/2013 Blood Pressure 1: 142/84 Code : 8480-6 BMI: 30.5 Code : 56203-8 Heart Rate 1 : 60 bpm Height: 5' Weight: 156 lbs 12/09/2012 Blood Pressure 1: 132/90 Code : 8480-6 Heart Rate 1: 56 bpm Weight: 12/07/2012 Blood Pressure 1: 130/82 Code : 8480-6 BMI: 35.2 Code : 44359-3 Heart Rate 1 : 80 bpm Height: 5' Weight: 180 lbs Functional Status No Functional Status data History of Present Illness Symptom Name Status Result Effective Date Notes hyperlipidemia Onset of Symptom during adulthood 02/19/2016 [...] data Encounters Encounter Performer Location Codes Date ([id number]) 41102 EST. PATIENT, LEVEL III Diagnosis: Impaired fasting glucose[ICD10: R73.01] Diagnosis: Mixed hyperlipidemia[ICD10: E78.2] Diagnosis: Encounter for immunization[ICD10: Z23] Jeaneth Alvarez MD, [facility] CPT-4: 18686 02/19/2016 ([id number]) 89596 EST. PATIENT, LEVEL III Diagnosis: Mixed hyperlipidemia[ICD10: E78.2] Diagnosis: Impaired fasting glucose[ICD10: R73.01] Jeaneth Alvarez MD, [facility] CPT-4: 57957 01/18/2015 ([id number]) 91326 EST. PATIENT, LEVEL III Diagnosis: ACUTE URI[ICD9: 465.9] Diagnosis: COUGH[ICD9: 786.2] Jeaneth Alvarez MD, [facility] CPT-4: 87999 06/01/2014 ([id number]) 16650 EST. PATIENT, LEVEL III Diagnosis: HYPERLIPIDEMIA[ICD9: 272.4] Diagnosis: Abnormal glucose[ICD9: 790.29] Diagnosis: 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/PROCESSING REP[ICD9: V65.3] Carmella Alvarez MD, [facility] CPT-4: 84131 10/26/2013 ([id number]) 75694 EST. PATIENT, LEVEL III Diagnosis: 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/PROCESSING REP[ICD9: V65.3] Diagnosis: Elevated blood sugar[ICD9: 790.29] Carmella Alvarez MD, [facility] CPT-4: 32977 12/09/2012 ([id number]) OFFICE VISIT, NEW - LEVEL 3 Diagnosis: HYPERLIPIDEMIA[ICD9: 272.4] Diagnosis: Abnormal glucose[ICD9: 790.29] Diagnosis: Change in skin moles[ICD9: 216.9] Carmella Alvarez MD, [facility] CPT-4: 24818 12/07/2012 Plan of Care Planned Activity Notes Codes Status Date Appointment: [facility] [phone] [facility] (30 min) Complex 04/15/2017 Visit Plan: Elevated blood sugars-check hgb [...] to medications. 02/19/2016 Appointment: [facility] [phone] [phone] (15 min) Moderate 02/19/2016 Patient Education: Patient [...] renal functioning. 10/26/2013 Appointment: Carmella Alvarez WPtel: [facility] Follow up 10/26/2013 Patient Education: Patient Medication Summary Completed 10/26/2013 Appointment: Jeaneth Ocampo WPtel: [phone] [phone] [place] Injection 02/08/2013 Patient Education: Patient Medication Summary [...] plan. 12/09/2012 Appointment: Jeaneth Ocampo WPtel: [phone] [phone] [place] Other 12/09/2012 Patient Education: Patient Medication Summary [...] removal after pt returns from vacation in [place]. 12/07/2012 Appointment: Carmella Alvarez [facility]el[facility] New Patient 12/07/2012 Patient Education: Patient Medication [...] removal after pt returns from vacation in [place]. . Well Adult - pt was counseled about diet, exercise, and encouraged to follow a heart healthy diet and increase acrtivity level. The patient was instructed to RTC yearly for well adult exams and PRN for acute illnesses. The pt was also instructed to have yearly labs for check of cholesterol, thyroid, chem panel, CBC, and renal functioning. . Hyperlipidemia - pt has been counseled [...] LABS CALL WHEN YOU GET BACK FROM [place] AND WE WILL SCHEDULE YOUR MAMMOGRAM . [...] LABS CALL WHEN YOU GET BACK FROM [place] AND WE WILL SCHEDULE YOUR MAMMOGRAM . [...]
--- OUTSIDE RECORDS SUMMARY | 2017-06-04 13:50 | XMS REPORT | CCD ---
Author Author Carmella Alvarez MD, [facility] Address [address] [place] [address] Phone Care Team Providers Care Clinical Training Coordinator Name Role Phone PP Unavailable CCM Unavailable Summary Purpose Interface Exchange Insurance Providers Payer name Policy type / Coverage type Covered libertarian ID Effective Begin Date Effective End Date WPS Medicare Part B Medicare Part B [id number] Unknown [employer] Medicare Part B [id number] Unknown Family history Daughter Diagnosis Age At [...] Unknown Retired 12/07/[address]: 133451102 Never smoker 12/07/2012 Alcohol history Unknown occasionally [...] ICD-9 : 790.29 Active 10/26/2013 Unknown 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 Active 10/26/2013 Unknown HYPERLIPIDEMIA ICD-9: [...] glucose ICD-9 : 790.29 10/26/2013 Active 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 10/26/2013 Active HYPERLIPIDEMIA ICD-9: 272.4 10/26/2013 Active VACCIN FOR INFLUENZA ICD-9: V04.81 02/08/2013 Active Hyperlipidemia Unknown 12/07/2012 Active Change in skin moles ICD-9: 216.9 12/07/2012 Active Medications Medication Codes Instructions Start Date Stop Date Status Fill Instructions Prilosec OTC 20 mg tablet,delayed release RxNorm: 298334 1 Tablet(s) PO BID 05/12/2017 08/09/2017 Active Carafate 1 gram tablet RxNorm: 729434 1 Tablet(s) PO AC & HS as needed 04/15/2017 05/14/2017 Inactive Prilosec OTC 20 mg tablet,delayed release RxNorm: 986140 1 Tablet(s) PO BID 04/15/2017 05/11/2017 Inactive simvastatin 20 mg tablet RxNorm: 542688 TAKE ONE TABLET BY MOUTH ONCE DAILY IN THE EVENING 04/08/2017 07/06/2017 Active simvastatin 20 mg tablet RxNorm: 993941 TAKE ONE TABLET BY MOUTH ONCE DAILY IN THE EVENING 01/16/2017 04/07/2017 Inactive simvastatin 20 mg tablet RxNorm: 547951 TAKE ONE TABLET BY MOUTH ONCE DAILY IN THE EVENING 07/14/2016 01/09/2017 Inactive simvastatin 20 mg tablet RxNorm: 975224 TAKE ONE TABLET BY MOUTH ONCE DAILY IN THE EVENING 01/14/2016 07/11/2016 Inactive simvastatin 20 mg tablet RxNorm: 282824 1 Tablet(s) QPM TAKE ONE TABLET BY MOUTH ONCE DAILY 01/18/2015 01/12/2016 Inactive Flonase 50 mcg/actuation nasal spray,suspension RxNorm: 694562 2 Davis NASAL daily 06/01/2014 06/07/2014 Inactive simvastatin 20 mg tablet RxNorm: 665081 1 Tablet(s) QPM TAKE ONE TABLET BY MOUTH ONCE DAILY 06/01/2014 12/27/2014 Inactive Kenalog 40 mg/mL suspension for injection RxNorm: 2208080 1 Milliliter(s) Inj 06/01/2014 06/01/2014 Inactive ceftriaxone 500 mg solution for injection RxNorm: 449639 Inj 06/01/2014 Inactive Augmentin 500 mg-125 mg tablet RxNorm: 118813 1 Tablet(s) PO TID 06/01/2014 06/07/2014 Inactive simvastatin 20 mg tablet RxNorm: 597484 TAKE ONE TABLET BY MOUTH IN THE EVENING 03/23/2014 04/21/2014 Inactive simvastatin 20 mg tablet RxNorm: 504237 1 Tablet(s) QPM TAKE ONE TABLET BY MOUTH ONCE DAILY 03/21/2014 05/31/2014 Inactive simvastatin 20 mg tablet RxNorm: 072333 1 Tablet(s) QPM TAKE ONE TABLET BY MOUTH ONCE DAILY 10/26/2013 03/20/2014 Inactive simvastatin 20 mg tablet RxNorm: 836216 TAKE ONE TABLET BY MOUTH ONCE DAILY 10/18/2013 10/25/2013 Inactive simvastatin 20 mg tablet RxNorm: 464132 1 Tablet(s) PO daily 10/13/2013 Inactive simvastatin 20 mg tablet RxNorm: 813646 1 Tablet(s) PO daily No Start Date 06/15/2013 Inactive Medication Administered Medication Codes Instructions Start Date Status ceftriaxone 500 mg solution for injection RxNorm: 454244 06/01/2014 No longer Active Kenalog 40 mg/mL suspension for injection RxNorm: 2307540 1Milliliter 06/01/2014 No longer Active Immunizations Vaccine [...] 465.9 06/01/2014 COUGH ICD-9: 786.2 06/01/2014 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 12/2013 Abnormal glucose ICD-9: 790.29 [...] Code Item Item Code Result Date %Hba1C Mlp329 % HbA1c 20724-5 6.2 % 02/20/2016 %Hba1C Djp075 Gluc Ave 131 mg/dL 02/20/2016 Lipid Ord30 CHOL 175 mg/dL 02/20/2016 Lipid Ord30 HDL 47.0 mg/dl 02/20/2016 Lipid Ord30 TRIG 105 mg/dL 02/20/2016 Lipid Ord30 LDL 107 mg/dL 02/20/2016 Lipid Ord30 C/HDL 3.7 Ratio 02/20/2016 Tsh Ord6 hTSH II 2.62 uIU/mL 02/20/2016 Comp Metabolic Gko533 NA 139 mEq/L 02/20/2016 Comp Metabolic Red018 K 4.3 mEq/L 02/20/2016 Comp Metabolic Xsv210 CL 106 mEq/L 02/20/2016 Comp Metabolic Kwk580 CO2 26.0 mEq/L 02/20/2016 Comp Metabolic Los610 ANION GAP 11 02/20/2016 Comp Metabolic Jfd977 GLUCOSE 126 mg/dL 02/20/2016 Comp Metabolic Fni918 Creat 0.8 mg/dL 02/20/2016 Comp Metabolic Iud703 eGFR 74 ml/min/1.73m2 02/20/2016 Comp Metabolic Wfm234 BUN 9 mg/dL 02/20/2016 Comp Metabolic Pex215 B/C Ratio 11.0 Ratio 02/20/2016 Comp Metabolic Bsx205 CALCIUM 9.0 mg/dL 02/20/2016 Comp Metabolic Bca847 ALK PHOS 76 U/L 02/20/2016 Comp Metabolic Ojc860 AST(SGOT) 15 U/L 02/20/2016 Comp Metabolic Ukh172 ALT(SGPT) 14 U/L 02/20/2016 Comp Metabolic Rjq495 BILI T 0.8 mg/dL 02/20/2016 Comp Metabolic Gqn239 ALBUMIN 4.1 g/dL 02/20/2016 Comp Metabolic Hkh671 TPRO 6.6 g/dL 02/20/2016 Comp Metabolic Ycr407 GLOB 2.5 g/dL 02/20/2016 Comp Metabolic Dto206 A/G Ratio 1.6 Ratio 02/20/2016 Comp Metabolic Ibb605 Osmo 278 mOsmo 02/20/2016 Cbc With Differential [...] 30.7 pg 02/20/2016 Cbc With Differential Ord2 [place]% 7.3 % 02/20/2016 Cbc With Differential Ord2 [...] 2.32 K/ul 02/20/2016 Cbc With Differential Ord2 [place] ABS# 0.5 K/ul 02/20/2016 Cbc With Differential Ord2 Eos ABS# 0.1 K/ul 02/20/2016 Cbc With Differential Ord2 Baso ABS# 0.0 K/ul 02/20/2016 Comp Metabolic Acx132 NA 139 mEq/L 01/19/2015 Comp Metabolic Jdh640 K 4.4 mEq/L 01/19/2015 Comp Metabolic Auy827 CL 105 mEq/L 01/19/2015 Comp Metabolic Cdj078 CO2 29.0 mEq/L 01/19/2015 Comp Metabolic Nrx810 ANION GAP 9 01/19/2015 Comp Metabolic Vgx177 GLUCOSE 128 mg/dL 01/19/2015 Comp Metabolic Xgd574 Creat 0.8 mg/dL 01/19/2015 Comp Metabolic Pmp686 eGFR 74 ml/min/1.73m2 01/19/2015 Comp Metabolic Pbc714 BUN 11 mg/dL 01/19/2015 Comp Metabolic Nls222 B/C Ratio 13.4 Ratio 01/19/2015 Comp Metabolic Gce602 CALCIUM 9.1 mg/dL 01/19/2015 Comp Metabolic Vof209 ALK PHOS 81 U/L 01/19/2015 Comp Metabolic Ddx202 AST(SGOT) 15 U/L 01/19/2015 Comp Metabolic Hvg867 ALT(SGPT) 14 U/L 01/19/2015 Comp Metabolic Bcl868 BILI T 0.8 mg/dL 01/19/2015 Comp Metabolic Pzo716 ALBUMIN 4.2 g/dL 01/19/2015 Comp Metabolic Qou943 TPRO 6.7 g/dL 01/19/2015 Comp Metabolic Gbs743 GLOB 2.5 g/dL 01/19/2015 Comp Metabolic Jya787 A/G Ratio 1.7 Ratio 01/19/2015 Comp Metabolic Fsr506 Osmo 279 mOsmo 01/19/2015 Cbc With Differential [...] Lipid Ord30 C/HDL 3.7 Ratio 01/19/2015 %Hba1C Vtd162 % HbA1c 66489-5 6.1 % 01/19/2015 %Hba1C Yji571 Gluc Ave 128 mg/dL 01/19/2015 Review of [...] above bra clasp - dark center with air brush artist peripheral surrounding freckle. Full Exam - General [...] above bra clasp - dark center with air brush artist peripheral surrounding freckle. Procedures Procedure Codes Date THER/PROPH/DIAG INJ SC/IM CPT-4: 12409 02/19/2016 PNEUMOCOCCAL VACC [address]: 16835182 CPT-4: 35382 02/19/2016 FLU VACC 4 ANIKA 3 YRS PLUS IM Formatting Model/CDA Sections, Assigned to SNOMED CT: 26081526 CPT-4: 68591Gtbahkf 01/18/2015 ADMIN INFLUENZA VIRUS VAC Formatting Model/CDA Sections, Assigned to CPT-4: K1198Xtpdyyh 01/18/2015 TRIAMCINOLONE ACET INJ NOS CPT-4: J3301 06/01/2014 ROCEPHIN, PER 250 MG CPT-4: J0696 06/01/2014 IMMUNIZATION ADMIN CPT -4: 31281 02/08/2013 Influenza Virus Vaccine, Split Virus, >3 Yrs, IM CPT-4: 88440 02/08/2013 Vital Signs Date Vital 04/15/2017 Blood Pressure 1: 136/72 Code : 8480-6 BMI: 35.0 Code : 72567-7 Heart Rate 1 : 80 bpm Height: 5' SpO2: 98% Weight: 179 lbs 02/19/2016 Blood Pressure 1: 130/80 Code : 8480-6 BMI: 35.9 Code : 27186-9 Heart Rate 1 : 75 bpm Height: 5' SpO2: 95% Weight: 184 lbs 01/18/2015 Blood Pressure 1: 142/80 Code : 8480-6 BMI: 34.8 Code : 20001-5 Heart Rate 1 : 76 bpm Height: 5' Weight: 178 lbs 06/01/2014 Blood Pressure 1: 146/88 Code : 8480-6 BMI: 33.4 Code : 42856-7 Heart Rate 1 : 84 bpm Height: 5' Temperature: 37.0 (C) / 98.6 (F) Weight: 171 lbs 10/26/2013 Blood Pressure 1: 142/84 Code : 8480-6 BMI: 30.5 Code : 79446-2 Heart Rate 1 : 60 bpm Height: 5' Weight: 156 lbs 12/09/2012 Blood Pressure 1: 132/90 Code : 8480-6 Heart Rate 1: 56 bpm Weight: 12/07/2012 Blood Pressure 1: 130/82 Code : 8480-6 BMI: 35.2 Code : 73835-8 Heart Rate 1 : 80 bpm Height: [...] data Encounters Encounter Performer Location Codes Date 37889 EST. PATIENT, LEVEL III Diagnosis: Gastro-esophageal reflux disease without esophagitis[ICD10: K21.9] [facility] CPT-4: 81388 04/15/2017 ([id number]) 71629 EST. PATIENT, LEVEL III Diagnosis: Impaired fasting glucose[ICD10: R73.01] Diagnosis: Mixed hyperlipidemia[ICD10: E78.2] Diagnosis: Encounter for immunization[ICD10: Z23] Jeaneth Alvarez MD, [facility] CPT-4: 20178 02/19/2016 ([id number]) 95485 EST. PATIENT, LEVEL III Diagnosis: Mixed hyperlipidemia[ICD10: E78.2] Diagnosis: Impaired fasting glucose[ICD10: R73.01] [facility] CPT-4: 69473 01/18/2015 ([id number]) 30170 EST. PATIENT, LEVEL III Diagnosis: ACUTE URI[ICD9: 465.9] Diagnosis: COUGH[ICD9: 786.2] Jeaneth Alvarez MD, [facility] CPT-4: 66865 06/01/2014 ([id number]) 08888 EST. PATIENT, LEVEL III Diagnosis: HYPERLIPIDEMIA[ICD9: 272.4] Diagnosis: Abnormal glucose[ICD9: 790.29] Diagnosis: 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/TENTMAKER[ICD9: V65.3] Carmella Alvarez MD, [facility] CPT-4: 91378 10/26/2013 ([id number]) 30421 EST. PATIENT, LEVEL III Diagnosis: 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/TENTMAKER[ICD9: V65.3] Diagnosis: Elevated blood sugar[ICD9: 790.29] Carmella Alvarez MD, [facility] CPT-4: 70783 12/09/2012 ([id number]) OFFICE VISIT, NEW - LEVEL 3 Diagnosis: HYPERLIPIDEMIA[ICD9: 272.4] Diagnosis: Abnormal glucose[ICD9: 790.29] Diagnosis: Change in skin moles[ICD9: 216.9] [facility] CPT-4: 77714 12/07/2012 Plan of Care Planned Activity Notes Codes Status Date Visit Plan: Esophageal Reflux - the patient has been counseled against excessive intake of caffeine, spicy foods, peppermint, and cinnamon - all of which can exacerbate esophageal reflux. The patient is to take medications as prescribed and call the office if the symptoms are not improving. 04/15/2017 [facility] [phone] [facility] ([facility] Complex 04/15/2017 Patient Education: Patient [...] to medications. 02/19/2016 [facility] [phone] [phone] (15 min) Moderate 02/19/2016 Patient Education: Patient [...] functioning. 10/26/2013 Appointment: Carmella Alvarez WPtel: [phone] [facility] Follow up 10/26/2013 Patient Education: Patient Medication Summary Completed 10/26/2013 Appointment: Jeaneth Ocampo WPtel: [phone] [phone] Injection 02/08/2013 Patient Education: Patient Medication [...] plan. 12/09/2012 Appointment: Jeaneth Ocampo WPtel: [phone] [phone] Other 12/09/2012 Patient Education: Patient Medication [...] removal after pt returns from vacation in [place]. 12/07/2012 Appointment: Carm[facility] New Patient 12/07/2012 Patient [...] removal after pt returns from vacation in [place]. . Well Adult - pt was counseled [...] LABS CALL WHEN YOU GET BACK FROM [place] AND WE WILL SCHEDULE YOUR MAMMOGRAM . [...] LABS CALL WHEN YOU GET BACK FROM [place] AND WE WILL SCHEDULE YOUR MAMMOGRAM . [...]
== END | disposition home or self-care (01) ==
LOC: ENDO 11:52
PROVIDERS: ATTEND Surgery
DX: K29.70 Gastritis, unspecified, without bleeding (principal); K44.9 Diaphragmatic hernia without obstruction or gangrene; K21.9 Gastro-esophageal reflux disease without esophagitis; E78.5 Hyperlipidemia, unspecified; Z79.899 Other long term (current) drug therapy

== ENCOUNTER → 2017-06-05 | Outpatient (CLI) | payer MEDICARE, OTHER ==
[~2017-06-05] MED LIST changes: +CATHETER FLUSH 10 ML SYR IV PRN; -FAMOTIDINE 20MG/2ML IV (PEPCID) IVP ONE; -FAMOTIDINE 20MG/2ML IV (PEPCID) ONE; -HURRICAINE EXT TUBE (BENZOCAINE) ONE; -HURRICAINE EXT TUBE (BENZOCAINE) XX ONE; -LACTATED RINGERS 1,000 ML IV ONE; -LACTATED RINGERS 1,000 ML IV STA; -MIDAZOLAM 2 MG/2 ML (VERSED) VIAL ONE; -ONDANSETRON 4 MG/2 ML (SDV) Z0FRAN IVP ONE; -ONDANSETRON 4 MG/2 ML (SDV) Z0FRAN ONE; -proPOfol 200 MG/20 ML (DIPRIVAN) VIAL IV ONE
--- NOTE | 2017-06-05 13:06 | Diagnostic Imaging Report ---
CLINICAL INDICATION: Patient with epigastric abdominal pain. COMPARISON: Nuclear medicine HIDA study dated 12/20/2009. PROCEDURE: The patient was administered 5.47 millicuries of technetium 99m Choletec. After 60 minutes of the images, one can of Ensure was drink followed by another 60 minutes of imaging. A nuclear medicine hepatobiliary scan with ejection fraction was performed. FINDINGS: Of note, patient's prior nuclear medicine HIDA study was normal. There is prompt uptake and excretion of radiotracer by the liver. Activity is visible in the gallbladder by 15 minutes and the small bowel by 20 minutes. Ejection fraction of the gallbladder is calculated at 98.3% (normal >35%). The gallbladder visibly empties on the scans following the ingestion of Ensure. IMPRESSION: Normal hepatobiliary scan with normal gallbladder ejection fraction. Dictated by: Dictated on workstation # [id number]
== END ==
LOC: CARD 09:44
PROVIDERS: ATTEND Surgery
DX: R10.13 Epigastric pain (principal)
CPT/HCPCS: 78227

== ENCOUNTER 2017-06-10 05:54 | Outpatient (CLI) | payer MEDICARE, OTHER ==
[~2017-06-10] VITALS: Ht 152.4 cm; Wt 82.1 kg
[~2017-06-10 05:54] MED LIST changes: -CATHETER FLUSH 10 ML SYR IV PRN
[2017-06-11] MEDS ORDERED: DOCU-143 PO (13:34)
[2017-06-11] MEDS ORDERED: ACHD5005 PO (13:34)
== END 2017-06-10 11:12 ==
LOC: PREOP 05:54
PROVIDERS: ATTEND Surgery
DX: Z01.818 Encounter for other preprocedural examination (principal); K82.8 Other specified diseases of gallbladder

== ENCOUNTER 2017-06-11 09:37 | Day surgery (SDC) | payer MEDICARE, OTHER ==
[~2017-06-11] VITALS: Ht 152.4 cm; Wt 82.1 kg
[2017-06-11 10:00] VITALS: BP 127/77
[2017-06-11] MEDS ORDERED: ceFAZolin 2 GM/50 ML PRE-MIX IVPB IV ONE (10:00)
[2017-06-11] MEDS ORDERED: CATHETER FLUSH 10 ML SYR IV PRN (10:00)
[2017-06-11] MEDS: LACTATED RINGERS 1,000 ML IV PRN ×2 (10:10→13:05)
[2017-06-11] MEDS ORDERED: ceFAZolin 2 GM IV Premixed 50 ML IV ONE (11:15)
[2017-06-11 11:20] LABS: BASOPHILS % (AUTO) 0 % (0-10); EOSINOPHILS # (AUTO) 0.1 10^3/uL (0.0-0.3); EOSINOPHILS % (AUTO) 1 % (0-10); HEMATOCRIT 44 % (35-52); HEMOGLOBIN 15.4 G/DL (11.5-16.0); LYMPHOCYTES % (AUTO) 37 % (12-44); MEAN CORPUSCULAR HEMOGLOBIN 31 PG (25-34); MEAN CORPUSCULAR HGB CONC 35 G/DL (32-36); MEAN CORPUSCULAR VOLUME 88 FL (80-99); MONOCYTES # (AUTO) 0.3 X 10^3 (0.0-1.0); MONOCYTES % (AUTO) 6 % (0-12); NEUTROPHILS % (AUTO) 55 % (42-75); PLATELET COUNT 214 10^3/uL (130-400); RED BLOOD COUNT 5.03 10^6/uL (4.35-5.85); RED CELL DISTRIBUTION WIDTH 12.4 % (10.0-14.5); WHITE BLOOD COUNT 5.4 10^3/uL (4.3-11.0)
--- NOTE | 2017-06-11 12:03 | Progress Note-Pre Operative ---
Pre-Operative Progress Note H&P Reviewed The H&P was reviewed, patient examined and no changes noted. Date Seen by Provider: Jun 11, 2017 Time Seen by Provider: 12:03 Date H&P Reviewed: Jun 11, 2017 Time H&P Reviewed: 12:03 Pre-Operative Diagnosis: biliary dyskinesia TIM HURST DO Jun 11, 2017 12:03
[2017-06-11] MEDS ORDERED: LIDOCAINE PF 2% 5 ML (XYLOCAINE) VIAL ONE (12:05)
[2017-06-11] MEDS ORDERED: DEXAMETHASONE 10 MG/ML (DECADRON) 1 ML VIAL ONE (12:05)
[2017-06-11] MEDS ORDERED: ROCURONIUM 50 MG/5 ML (ZEMURON) VIAL IV ONE (12:05)
[2017-06-11] MEDS ORDERED: proPOfol 200 MG/20 ML (DIPRIVAN) VIAL IV ONE (12:05)
[2017-06-11] MEDS ORDERED: ONDANSETRON 4 MG/2 ML (SDV) Z0FRAN ONE (12:05)
[2017-06-11] MEDS ORDERED: SEVOFLURANE (ULTANE) 15 ML INHAL SOLN ONE ×4 (12:05→12:56)
[2017-06-11] MEDS ORDERED: fentaNYL INJECTION 100 MCG/2 ML AMP ONE ×2 (12:06→13:27)
[2017-06-11] MEDS ORDERED: MIDAZOLAM 2 MG/2 ML (VERSED) VIAL ONE (12:06)
[2017-06-11] MEDS ORDERED: BUPIVACAINE 0.5% 30 ML (SENSORCAINE) VIAL ONE (12:16)
[2017-06-11] MEDS ORDERED: LIDOCAINE 1% INJ 20 ML (XYLOCAINE) VIAL ONE (12:16)
--- NOTE | 2017-06-11 13:33 | Progress Note-Post Operative ---
Post-Operative Progess Note Surgeon (s)/Road Supervisor Of Engines (s) Surgeon TIM HURST DO Road Supervisor Of Engines: Ruslan Pre-Operative Diagnosis biliary dyskinesia Post-Operative Diagnosis same Procedure & Operative Findings Date of Procedure 06/11/17 Procedure Performed/Findings lap benitez c ioc Anesthesia Type gen Estimated Blood Loss Estimated blood loss (mL): min Specimens/Packing Specimens Removed gallbladder TIM HURST DO Jun 11, 2017 13:33
[2017-06-11] MEDS ORDERED: DOCU-143 PO (13:34)
[2017-06-11] MEDS ORDERED: ACHD5005 PO (13:34)
--- NOTE | 2017-06-11 13:35 | Discharge Inst-Simple/Standard ---
Discharge Inst-Standard Discharge Medications New, Converted or Re-Newed RX: RX on Chart Patient Instructions/Follow Up Plan of Care/Instructions/FU: 2 weeks barbara Activity as Tolerated: No Discharge Diet: Regular Diet Other Inst to Patient Follow up Appt: Make appointment for 2 weeks. Instructions: No lifting greater than 10 pounds. No strenuous activity. May shower in 24 hours, no tub bath or soaking. Use incentive spirometer at home as directed. No Smoking Skin/Wound Care: You have special glue over incisions it will fall off on its own. Symptoms to Report: Appetite Changes, Extremity Discoloration, Numbness/Tingling, Swelling Increased , Bleeding Excessive, Eyesight Changes, Pain Increased, Urine Color Change, Constipation(Persistent), Fever over 101 degree F, Pain/Pressure in chest, Urinating Difficulty, Cough Up/Vomit Blood, Heart Beat Irreg/Pounding, Pain/ Pressure in jaw, Vaginal Bleeding Increase, Cramps in feet or legs, Lightheadedness, Pain/Pressure in shoulder, Diarrhea(Persistent), Memory Changes Suddenly, Questions/Concerns, Weight gain consecutive days, Dizziness/ Fainting, Nausea/Vomiting, Shortness of Breath, Weight gain over 2 pounds. If eyes or skin turn yellow notify physician. If questions or concerns contact your physician Or seek help at emergency department. TMI HURST DO Jun 11, 2017 13:35
[2017-06-11] MEDS ORDERED: NEOSTIGMINE (BLOXIVERZ ) 1 MG/1ML 10 ML VIAL ONE (13:44)
[2017-06-11] MEDS ORDERED: GLYCOPYRROLATE 0.2 MG/ML (ROBINUL) 2 ML VIAL ONE ×2 (13:44)
[2017-06-11] MEDS ORDERED: HYDROcodone/APAP 5 MG/325 MG (LORTAB) TAB PO PRN (13:45)
[2017-06-11] MEDS: morphine INJ 10 MG/ML 1ML (SYR OR VIAL) IVP PRN ×2 (14:25→14:30)
--- NOTE | 2017-06-11 14:44 | Anesthesia-General Post-Op ---
General Patient Condition Mental Status/LOC: Same as Preop Cardiovascular: Satisfactory Nausea/Vomiting: Absent Respiratory: Satisfactory Pain: Controlled Complications: Absent Post Op Complications Complications None Follow Up Care/Instructions Patient Instructions None needed. Anesthesia/Patient Condition Patient Condition Patient is doing well, no complaints, stable vital signs, no apparent adverse anesthesia problems. No complications reported per nursing. BRANDON OLIVER CRNA Jun 11, 2017 14:44
[2017-06-11 14:50] VITALS: BP 130/70
[2017-06-11 14:51] VITALS: BP 130/70
[2017-06-11 15:20] VITALS: BP 121/64
[2017-06-11 15:50] VITALS: BP 128/69
--- NOTE | 2017-06-11 17:59 | Diagnostic Imaging Report ---
INDICATION: Intraoperative cholangiogram during laparoscopic cholecystectomy. EXAMINATION: Fluoroscopy was provided in the OR during performance of an intraoperative cholangiogram. FINDINGS: Contrast has been injected via the cystic duct remnant. The common duct is patent. No filling defects to suggest retained stones are seen. There is contrast passing into the duodenum. 11 seconds of fluoroscopic time was utilized. IMPRESSION: Fluoroscopy for intraoperative cholangiogram. Dictated by: Dictated on workstation # [id number]
--- NOTE | 2017-06-11 23:35 | OPERATIVE REPORT ---
DATE OF SERVICE: 06/11/2017 PREOPERATIVE DIAGNOSIS: Biliary dyskinesia. POSTOPERATIVE DIAGNOSIS: Biliary dyskinesia. PROCEDURE: Laparoscopic cholecystectomy with intraoperative cholangiogram. SURGEON: Tim Dailey DO. SQL CONSULTANT: Dr. Joseph, assisted in retraction, dissection and closure ANESTHESIA: General. ESTIMATED BLOOD LOSS: Minimal. COMPLICATIONS: None. INDICATIONS: The patient is a 66-year-old female, who has been having some progressive abdominal pain, who is not feeling well. She had a workup including an EGD, still with no improvement or source; therefore ultrasound and HIDA scan were performed. HIDA scan demonstrated an ejection fraction greater than 90%. The patient was explained risks and benefits of procedure and wished to proceed with procedure. Consent was signed in the chart. DESCRIPTION OF PROCEDURE: The patient was taken to the operating suite. She was prepped and draped in sterile fashion. Surgical pause was performed. Fabiano technique was used to enter the abdomen just above the umbilicus. Once entered, an #0 Vicryl was placed in a iwkknu-dj-czfwx fashion at the fascia for closure at the end. The balloon trocar was inserted and pneumoperitoneum was achieved. Under direct visualization of the laparoscope, a 5 mm trocar was placed in the subxiphoid region and two 5 mm trocars were placed in the right upper quadrant. Gallbladder was grasped and elevated. There was some omentum in the duodenum that was adherent to the gallbladder, which then was bluntly taken down also with some cautery dissection as well. The cystic duct and cystic artery were then dissected out. Clips were placed on the proximal and distal portion of the cystic artery. A clip was placed on the distal portion of the cystic duct. The duct was then partially transected and an arrow catheter was inserted and cholangiogram was then performed. There were no filling defects and contrast made its way into the duodenum without difficulty. The catheter was removed. Clips were placed on the proximal portion of the cystic duct and the cystic duct and cystic artery were then completely transected. Hook cautery was used to dissect the gallbladder from the gallbladder fossa achieving hemostasis. Once removed, the gallbladder was placed in an Endobag and removed through the 12 mm trocar site. The abdomen was irrigated with copious amounts of irrigation. Hemostasis had been achieved. Abdomen was then desufflated, trocars were removed. The #0 Vicryl was placed in zoifyn-ho-guxln fashion, it was then tied and the skin was then closed using 4-0 Monocryl in a subcuticular fashion. SwiftSet was then placed over the incisions after the area was washed and dried. The patient tolerated procedure well without any complications. She was taken to the recovery room in stable condition. Job ID: [id number] DocumentID: [id number] Dictated Date: 06/11/2017 16:08:12 Litigation Attorney Date: 06/11/2017 23:34:02 Dictated By: TIM DAILEY DO
== END 2017-06-11 16:20 | disposition home or self-care (01) ==
LOC: SDC 09:37
PROVIDERS: ATTEND Surgery
DX: K81.1 Chronic cholecystitis (principal); E78.5 Hyperlipidemia, unspecified; K21.9 Gastro-esophageal reflux disease without esophagitis; E66.9 Obesity, unspecified; Z68.35 Body mass index [BMI] 35.0-35.9, adult; Z79.899 Other long term (current) drug therapy
CPT/HCPCS: 36415; 85025; 87081

== ENCOUNTER → 2018-10-28 | Outpatient (CLI) | payer MEDICARE, OTHER ==
[~2018-10-28] MED LIST changes: +ACHD5005 PO; +DOCU-143 PO; -RANI150T15 PO; +RANI150T46 PO
--- NOTE | 2018-10-28 12:19 | Diagnostic Imaging Report ---
INDICATION: Routine screening. COMPARISON: No prior mammograms are available for comparison. TECHNIQUE: 2D and 3D bilateral screening mammography was performed with CAD. FINDINGS: Scattered fibroglandular densities are identified bilaterally. Benign calcifications are identified bilaterally. A density is identified in the central right breast, best seen on the CC view. No definite correlate on the MLO view is identified. Additional views are recommended. The left breast is unremarkable. The axillae are unremarkable. IMPRESSION: Right breast density. Additional views are recommended for further evaluation. ACR BI-RADS Category 0: Incomplete. (Needs additional imaging evaluation). Result letter will be mailed to the patient. Note: At least 10% of breast cancer is not imaged by mammography. Dictated by: Dictated on workstation # [id number]
== END ==
LOC: RAD 11:12
PROVIDERS: ATTEND Nurse Practitioner Family
DX: Z12.31 Encounter for screening mammogram for malignant neoplasm of breast (principal); R92.8 Other abnormal and inconclusive findings on diagnostic imaging of breast
CPT/HCPCS: 77067

== ENCOUNTER → 2018-11-11 | Outpatient (CLI) | payer MEDICARE, OTHER ==
--- NOTE | 2018-11-11 21:05 | Diagnostic Imaging Report ---
INDICATION: Abnormal screening mammogram. The current study was also evaluated with a Computer Aided Detection (CAD) system. 3-D Tomographic imaging was also performed. Comparison made with prior examination from 10/28/2018. FINDINGS: True lateral views, rolled views, and spot compression views of the right breast were obtained. The previously described density appears to be superimposed fibroglandular tissue. There is no definite discrete mass or spiculated lesion. Ultrasound of this area is also negative. IMPRESSION: Benign. The patient should resume bilateral screening mammography in October 2019. ACR BI-RADS Category 2: Benign findings. Result letter will be mailed to the patient. Note: At least 10% of breast cancer is not imaged by mammography. Dictated by: Dictated on workstation # [id number]
--- NOTE | 2018-11-11 21:06 | Diagnostic Imaging Report ---
INDICATION: Abnormal mammogram. TECHNIQUE: Targeted ultrasound of the right breast was performed in the retroareolar region. FINDINGS: There is no evidence of discrete solid or cystic mass in the right breast. IMPRESSION: Negative targeted ultrasound of the right breast. ACR BI-RADS Category 1: Negative. Dictated by: Dictated on workstation # [id number]
== END ==
LOC: RAD 08:25
PROVIDERS: ATTEND Nurse Practitioner Family
DX: R92.2 Inconclusive mammogram (principal)

== ENCOUNTER → 2022-02-23 | Outpatient (CLI) | payer MEDICARE, OTHER ==
[~2022-02-23] MED LIST changes: +RANI-613 PO; -RANI150T46 PO; +SIMV20TA26 PO; -SIMV20TA3 PO
--- NOTE | 2022-02-23 14:54 | Diagnostic Imaging Report ---
CLINICAL INDICATION: Hematuria possible stone. EXAM: X-ray of the abdomen with multiple supine views. COMPARISON: None. FINDINGS: There is a nonobstructed bowel gas pattern. There is no evidence of abdominal free air. There is a small amount of stool involving the left colon region. There are multiple radiodense capsular appearance structures overlying the right side of abdomen and pelvis region likely related to ingested objects. Surgical clips are seen overlying the right upper quadrant which could be related to cholecystectomy changes. There are multiple focal calcifications in the region and pelvis which may represent phleboliths, but distal ureteral stone cannot be completely excluded. There is no calcification overlying the expected regions of the kidney shadows. There are hypertrophic spurs involving the thoracic spine. IMPRESSION: 1: There are multiple stones overlying the pelvis which may represent phleboliths, but distal ureteral stones cannot be completely excluded. If necessary, CT scan better evaluate. 2: Nonobstructive bowel gas pattern. Dictated by: Dictated on workstation # [id number]
== END ==
LOC: RAD 14:32
PROVIDERS: ATTEND Registered Nurse Critical Care Medicine
DX: N20.9 Urinary calculus, unspecified (principal); R19.8 Other specified symptoms and signs involving the digestive system and abdomen
CPT/HCPCS: 74018

== ENCOUNTER → 2022-03-05 | Outpatient (CLI) | payer MEDICARE, OTHER ==
--- NOTE | 2022-03-05 09:54 | Diagnostic Imaging Report ---
PROCEDURE: CT abdomen and pelvis without contrast. TECHNIQUE: Multiple contiguous axial images were obtained through the abdomen and pelvis without the use of intravenous contrast. Auto Exposure Controls were utilized during the CT exam to meet ALARA standards for radiation dose reduction. INDICATION: Left-sided back pain and hematuria. No prior studies are available for comparison. The lung bases are clear. The liver is unremarkable. Gallbladder surgically absent. No biliary duct dilatation is seen. The pancreas and spleen are unremarkable. No adrenal mass is identified. No renal or ureteral calculi are seen. There is no hydronephrosis. Aorta is nonaneurysmal. There is a small fat-containing umbilical hernia. Bowel loops are normal caliber. There is occasional diverticula of the sigmoid colon but no evidence of acute diverticulitis. No free fluid or fluid collection is seen. Bladder is decompressed. Uterus appears to be surgically absent. Bony structures are nonacute. IMPRESSION: 1. No evidence of urinary tract calculi or obstruction. 2. Uncomplicated diverticulosis. 3. No acute abnormality is identified. Dictated by: Dictated on workstation # [id number]
== END ==
LOC: RAD 09:17
PROVIDERS: ATTEND Nurse Practitioner Family
DX: K57.90 Diverticulosis of intestine, part unspecified, without perforation or abscess without bleeding (principal); R31.9 Hematuria, unspecified
CPT/HCPCS: 74176

== ENCOUNTER 2022-03-17 16:14 | Emergency (ER) | payer MEDICARE, OTHER ==
[~2022-03-17] VITALS: Ht 152.4 cm; Wt 73.9 kg
[2022-03-17 16:45] LABS: BILIRUBIN,URINE NEGATIVE (NEGATIVE); CLARITY,URINE CLEAR; COLOR,URINE YELLOW; GLUCOSE, URINE (UA) NEGATIVE (NEGATIVE); KETONES,URINE NEGATIVE (NEGATIVE); LEUKOCYTE ESTERASE ,URINE TRACE (NEGATIVE); NITRITE,URINE NEGATIVE (NEGATIVE); PH,URINE 5.5 (5-9); PROTEIN,URINE NEGATIVE (NEGATIVE)
[2022-03-17 16:53] LABS: BACTERIA,URINE TRACE /HPF; RBC,URINE RARE /HPF; SQUAMOUS EPITHELIAL CELL,UR 0-2 /HPF
[2022-03-17] MEDS ORDERED: NS IV 1000 ML 1,000 ML IV ONE (17:00)
[2022-03-17] MEDS ORDERED: PROMETHAZINE INJ 25 MG/ML (PHENERGAN) AMP IVP ONE (17:00)
--- NOTE | 2022-03-17 17:30 | ED Abdominal Pain ---
General Chief Complaint: Abdominal/GI Problems Stated Complaint: NAUSEA, DIARRHEA, ABD PAIN Nursing Triage Note: PT AMB TO RM 9 WITH COMPLAINT OF DIARRHEA, ABD PAIN. WAS STARTED ON Thursday BY PCP. PT IS ALSO COMPLAINING OF LEFT CALF PAIN ON MOVEMENT AND LOW BACK PAIN. Source of Information: Patient Exam Limitations: No Limitations History of Present Illness Date Seen by Provider: Mar 17, 2022 Allergies and Home Medications Allergies Coded Allergies: No Known Drug Allergies (Unverified , 06/10/17) Patient Home Medication List Docusate Sodium (Colace) 100 Mg Capsule, 100 MG PO DAILY Prescribed by: TIM HURST on 06/11/17 1334 Hydrocodone Bit/Acetaminophen (Lortab 5 Mg Tablet) 1 Tab Tab, 1 TAB PO Q4H PRN Prescribed by: TIM HURST on 06/11/17 1334 Pantoprazole Sodium (Protonix) 40 Mg Tablet.dr, 40 MG PO DAILY Prescribed by: TIM HURST on 06/02/17 1320 Simvastatin (Simvastatin) 20 Mg Tablet, 20 MG PO HS, (Reported) Entered as Reported by: EMELY FRANCO on 05/28/17 1407 Sucralfate (Carafate) 1 Gm Tablet, 1 GM PO ACHS, (Reported) Entered as Reported by: EMELY FRANCO on 05/28/17 1407 Past Goadsnc-Qinlav-Tpyvna Hx Patient Social History Tobacco Use?: No Use of E-Cig and/or Vaping dev: No Substance use?: No Alcohol Use?: Yes Alcohol Frequency: Once in a while Pt feels they are or have been: No Immunizations Up To Date Tetanus Booster (TDap): Unknown PED Vaccines UTD: No Seasonal Allergies Seasonal Allergies: No Past Medical History Section, Hysterectomy, Parathyroidectomy 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 0.0oz. [id number]; 31.00 BMI Method: Progress/Results/Core Measures Results/Orders Lab Results Laboratory Tests Test 03/17/22 16:38 03/17/22 17:28 Range/Units Urine Color YELLOW Urine Clarity CLEAR Urine pH 5.5 5-9 Urine Specific [place] <=1.005 1.016-1.022 Urine Protein NEGATIVE NEGATIVE Urine Glucose (UA) NEGATIVE NEGATIVE Urine Ketones NEGATIVE NEGATIVE Urine Nitrite NEGATIVE NEGATIVE Urine Bilirubin NEGATIVE NEGATIVE Urine Urobilinogen 0.2 < = 1.0 MG/DL Urine Leukocyte Esterase TRACE H NEGATIVE Urine RBC (Auto) TRACE-I H NEGATIVE Urine RBC RARE /HPF Urine WBC NONE /HPF Urine Squamous Epithelial Cells 0-2 /HPF Urine Crystals NONE /LPF Urine Bacteria TRACE /HPF Urine Casts NONE /LPF Urine Mucus NEGATIVE /LPF Urine Culture Indicated NO White Blood Count 6.7 4.3-11.0 10^3/uL Red Blood Count 4.87 3.80-5.11 10^6/uL Hemoglobin 14.6 11.5-16.0 g/dL Hematocrit 44 35-52 % Mean Corpuscular Volume 90 80-99 fL Mean Corpuscular Hemoglobin 30 25-34 pg Mean Corpuscular Hemoglobin Concent 33 32-36 g/dL Red Cell Distribution Width 11.7 10.0-14.5 % Platelet Count 209 130-400 10^3/uL Mean Platelet Volume 11.1 9.0-12.2 fL Immature Granulocyte % (Auto) 0 % Neutrophils (%) (Auto) 62 42-75 % Lymphocytes (%) (Auto) 31 12-44 % Monocytes (%) (Auto) 5 0-12 % Eosinophils (%) (Auto) 0 0-10 % Basophils (%) (Auto) 0 0-10 % Neutrophils # (Auto) 4.2 1.8-7.8 10^3/uL Lymphocytes # (Auto) 2.1 1.0-4.0 10^3/uL Monocytes # (Auto) 0.4 0.0-1.0 10^3/uL Eosinophils # (Auto) 0.0 0.0-0.3 10^3/uL Basophils # (Auto) 0.0 0.0-0.1 10^3/uL Immature Granulocyte # (Auto) 0.0 0.0-0.1 10^3/uL Sodium Level 141 135-145 MMOL/L Potassium Level 3.5 L 3.6-5.0 MMOL/L Chloride Level 106 98-107 MMOL/L Carbon Dioxide Level 26 21-32 MMOL/L Anion Gap 9 5-14 MMOL/L Blood Urea Nitrogen 7 7-18 MG/DL Creatinine 0.82 0.60-1.30 MG/DL Estimat Glomerular Filtration Rate 75 BUN/Creatinine Ratio 9 Glucose Level 117 H 70-105 MG/DL Calcium Level 9.5 8.5-10.1 MG/DL Corrected Calcium 9.3 8.5-10.1 MG/DL Total Bilirubin 0.7 0.1-1.0 MG/DL Aspartate Amino Transf (AST/SGOT) 21 5-34 U/L Alanine Aminotransferase (ALT/SGPT) 21 0-55 U/L Alkaline Phosphatase 64 40-136 U/L C-Reactive Protein High Sensitivity 0.05 0.00-0.50 MG/DL Total Protein 7.0 6.4-8.2 GM/DL Albumin 4.2 3.2-4.5 GM/DL Procalcitonin 0.03 <0.10 NG/ML My Orders Orders - TREY NGUYEN APRN Ua Culture If Indicated (03/17/22 16:15) Cbc With Automated Diff (03/17/22 16:53) Comprehensive Metabolic Panel (03/17/22 16:53) Hs C Reactive Protein (03/17/22 16:53) Procalcitonin (Pct) (03/17/22 16:53) Ct Abdomen/Pelvis W (03/17/22 16:53) Ns Iv 1000 Ml (Sodium Chloride 0.9%) (03/17/22 17:00) Promethazine Injection (Phenergan Injec (03/17/22 17:00) Iohexol Injection (Omnipaque 350 Mg/Ml 1 (03/17/22 18:15) Ns (Ivpb) (Sodium Chloride 0.9% Ivpb Bag (03/17/22 18:15) Medications Given in ED Current Medications Medications Dose Ordered Sig/Jaclyn Route Start Time Stop Time Status Last Admin Dose Admin Iohexol 100 ml ONCE ONCE IV 03/17/22 18:15 03/17/22 18:16 DC 03/17/22 18:21 80 ML Promethazine HCl 25 mg ONCE ONCE IVP 03/17/22 17:00 03/17/22 17:01 DC 03/17/22 17:29 25 MG Sodium Chloride 100 ml ONCE ONCE IV 03/17/22 18:15 03/17/22 18:16 DC 03/17/22 18:21 80 ML Sodium Chloride 1,000 ml @ 0 mls/hr Q0M ONCE IV 03/17/22 17:00 03/17/22 17:01 DC 03/17/22 17:28 0 MLS/HR Vital Signs/I&O 03/17/22 16:19 Temp 36.2 Pulse 96 Resp 16 B/P (MAP) Pulse Ox 94 O2 Delivery Room Air Departure Impression Primary Impression: Abdominal pain Additional Impression: Nausea and vomiting Disposition: 01 HOME, SELF-CARE Condition: Improved Departure-Patient Inst. Decision time for Depature: 19:08 Referrals: ISRAEL ALVAREZ MD (PCP/Family) Primary Care Physician Patient Instructions: Nausea and Vomiting, Adult ED Add. Discharge Instructions: Plan: 1. May take Phenergan 1 tablet by mouth every 6 hours as needed for nausea and vomiting. This medication may cause you to become sleepy or dizzy, do not drive while taking. 2. Make sure you are drinking plenty of fluids to stay hydrated. 3. Follow-up with Dr. Alvarez later this week or early next week as it may be beneficial for you to get scheduled for colonoscopy and cystoscopy. 4. Return to the ER for any new, concerning, worsening symptoms. All discharge instructions reviewed with patient and/or family. Voiced understanding. Scripts Promethazine HCl (Promethazine Tablet) 25 Mg Tablet 25 MG PO Q6H PRN for NAUSEA/VOMITING, #14 TAB 0 Refills Prov: TREY NGUYEN HEATING AND VENTILATING WORKER 03/17/22 TREY NGUYEN HEATING AND VENTILATING WORKER Mar 17, 2022 17:30
[2022-03-17 17:38] LABS: BASOPHILS % (AUTO) 0 % (0-10); EOSINOPHILS % (AUTO) 0 % (0-10); HEMATOCRIT 44 % (35-52); HEMOGLOBIN 14.6 g/dL (11.5-16.0); LYMPHOCYTES # (AUTO) 2.1 10^3/uL (1.0-4.0); LYMPHOCYTES % (AUTO) 31 % (12-44); MEAN CORPUSCULAR HEMOGLOBIN 30 pg (25-34); MEAN CORPUSCULAR HGB CONC 33 g/dL (32-36); MEAN CORPUSCULAR VOLUME 90 fL (80-99); MEAN PLATELET VOLUME 11.1 fL (9.0-12.2); MONOCYTES # (AUTO) 0.4 10^3/uL (0.0-1.0); MONOCYTES % (AUTO) 5 % (0-12); NEUTROPHILS # (AUTO) 4.2 10^3/uL (1.8-7.8); NEUTROPHILS % (AUTO) 62 % (42-75); PLATELET COUNT 209 10^3/uL (130-400); WHITE BLOOD COUNT 6.7 10^3/uL (4.3-11.0)
[2022-03-17 18:02] LABS: ALBUMIN 4.2 GM/DL (3.2-4.5); BILIRUBIN,TOTAL 0.7 MG/DL (0.1-1.0); CALCIUM 9.5 MG/DL (8.5-10.1); CREATININE SERUM 0.82 MG/DL (0.60-1.30); POTASSIUM 3.5 MMOL/L (3.6-5.0)
[2022-03-17] MEDS ORDERED: NS 100 ML (IVPB) BAG IV ONE (18:15)
[2022-03-17] MEDS ORDERED: IOHEXOL 350 MG/ML 100 ML (OMNIPAQUE 350) VIAL IV ONE (18:15)
--- NOTE | 2022-03-17 18:31 | Diagnostic Imaging Report ---
EXAMINATION: CT abdomen and pelvis with intravenous contrast. TECHNIQUE: Multiple contiguous axial images were obtained through the abdomen and pelvis after the uneventful administration of intravenous contrast. All CT scans use one or more of the following dose optimizing techniques: automated exposure control, MA and/or KvP adjustment based on patient size and exam type or iterative reconstruction. HISTORY: Abdominal pain. History of diverticulosis. COMPARISON: 03/05/2022. FINDINGS: The heart is unremarkable. The included lung bases are clear. There is prominence of the collecting systems bilaterally without evidence of obstructing calculi. The urinary bladder is moderately distended. Calcifications are seen within the anterior urinary bladder wall which do not appear dependent. No perinephric fat stranding. No evidence of solid renal mass. The liver, spleen, pancreas, and adrenal glands have a normal appearance. There is no pathologically enlarged mesenteric or retroperitoneal adenopathy. The bowel loops are nondilated. The appendix is visualized in the right lower quadrant and has a normal appearance. Diverticula are seen in the sigmoid colon without evidence of acute diverticulitis. There is no free fluid or free air. No acute osseous abnormalities. There is no free air, loculated collection, or adenopathy in the pelvis. IMPRESSION: 1. Nondependent calcifications within the anterior urinary bladder wall. Consider direct visualization to further evaluate. 2. Mild prominence of the collecting systems bilaterally with moderate distention of the urinary bladder. No perinephric fat stranding. No evidence of obstructing calculi. 3. Diverticulosis of the sigmoid colon without evidence of acute diverticulitis. Dictated by: Dictated on workstation # [id number]
[2022-03-17] MEDS ORDERED: PROM25TA14 PO (19:10)
[2022-03-17 19:15] VITALS: BP 142/85
== END 2022-03-17 19:15 | disposition home or self-care (01) ==
LOC: EDUNIT# 16:14 → ER 16:15
DX: R10.9 Unspecified abdominal pain (principal); R11.2 Nausea with vomiting, unspecified
CPT/HCPCS: 36415; 74177; 80053; 81000; 84145; 85025; 86141

== ENCOUNTER 2022-03-22 00:39 | Emergency (ER) | payer MEDICARE, OTHER ==
[~2022-03-22 00:39] MED LIST changes: +PROM25TA14 PO
[2022-03-22] MEDS ORDERED: ANTACID SUSP 30 ML UDC (MYLANTA) PO ONE (01:15)
[2022-03-22] MEDS ORDERED: DROPERIDOL 5 MG/2 ML (INAPSINE) ED ONLY! IV ONE (01:15)
[2022-03-22] MEDS ORDERED: ACETAMINOPHEN 500 MG TAB (TYLENOL) PO ONE (01:15)
[2022-03-22] MEDS ORDERED: LIDOCAINE 2% VISCOUS 15 ML UDC PO ONE (01:15)
[2022-03-22 01:23] LABS: BASOPHILS % (AUTO) 1 % (0-10); EOSINOPHILS # (AUTO) 0.1 10^3/uL (0.0-0.3); EOSINOPHILS % (AUTO) 1 % (0-10); HEMATOCRIT 45 % (35-52); HEMOGLOBIN 15.2 g/dL (11.5-16.0); LYMPHOCYTES # (AUTO) 2.2 10^3/uL (1.0-4.0); LYMPHOCYTES % (AUTO) 34 % (12-44); MEAN CORPUSCULAR HEMOGLOBIN 30 pg (25-34); MEAN CORPUSCULAR HGB CONC 34 g/dL (32-36); MEAN CORPUSCULAR VOLUME 89 fL (80-99); MEAN PLATELET VOLUME 11.2 fL (9.0-12.2); MONOCYTES # (AUTO) 0.4 10^3/uL (0.0-1.0); MONOCYTES % (AUTO) 6 % (0-12); NEUTROPHILS # (AUTO) 3.9 10^3/uL (1.8-7.8); NEUTROPHILS % (AUTO) 59 % (42-75); PLATELET COUNT 208 10^3/uL (130-400); WHITE BLOOD COUNT 6.6 10^3/uL (4.3-11.0)
[2022-03-22 01:24] LABS: BILIRUBIN,URINE NEGATIVE (NEGATIVE); CLARITY,URINE CLEAR; COLOR,URINE YELLOW; GLUCOSE, URINE (UA) NEGATIVE (NEGATIVE); KETONES,URINE TRACE (NEGATIVE); LEUKOCYTE ESTERASE ,URINE TRACE (NEGATIVE); NITRITE,URINE NEGATIVE (NEGATIVE); PROTEIN,URINE NEGATIVE (NEGATIVE)
--- NOTE | 2022-03-22 01:36 | ED Abdominal Pain ---
General Chief Complaint: Abdominal/GI Problems Stated Complaint: LOWER BACK PAIN,STOMACH PAIN Nursing Triage Note: TO ED VIA POV AND AMBULATORY TO ROOM 7 WITH C/O CONTINUED ABD AND BACK PAIN. PT STATES SHE WAS SEEN IN THIS ER RECENTLY FOR SAME AND HAD CT AND HAS FOLLOWED UP WITH HER PCP DR. MERINO. RECENT ANTIBX OF CIPRO AND FLAGYL. STATES SHE HAS HAD DIARRHEA FOR 3 WEEKS AND USUALLY JUST IN THE MORNING. 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 DENIES ANY CHANGES OR BURNING WITH URINATION. C/O NAUSEA. PT IS VERY FRUSTRATED AND STATES, "NO ONE IS LISTENING TO ME ABOUT THIS OR HELPING ME". Source of Information: Patient, Old Records Exam Limitations: No Limitations History of Present Illness Date Seen by Provider: Mar 22, 2022 Time Seen by Provider: 00:46 Initial Comments 71-year-old female with past medical history of high cholesterol coming in due to abdominal pain radiating to her back. Is been going on for several weeks, was seen here several days ago for the same. CT abdomen pelvis with diverticulosis with no diverticulitis. Labs were essentially unremarkable. Recently had finished some Flagyl as well. Has had intermittent diarrhea, worse in the mornings. Had 1 episode this morning which was loose, not liquid. No burning with urination or urinary frequency. Has had some mild nausea without vomiting. No fever, chest pain, shortness of breath, weakness, numbness, vaginal discharge, or any other concerns. Allergies and Home Medications Allergies Coded Allergies: No Known Drug Allergies (Unverified , 06/10/17) Patient Home Medication List Home Medication List Reviewed: Yes Docusate Sodium (Colace) 100 Mg Capsule, 100 MG PO DAILY Prescribed by: TIM HURST on 06/11/17 1334 Hydrocodone Bit/Acetaminophen (Lortab 5 Mg Tablet) 1 Tab Tab, 1 TAB PO Q4H PRN Prescribed by: TIM HURST on 06/11/17 1334 Ondansetron (Ondansetron Odt) 4 Mg Tab.rapdis, 4 MG SL Q6H PRN for NAUSEA/VOMITING Prescribed by: ESTEPHANIE DELEON on 03/22/22 0208 Oxycodone HCl (Oxycodone HCl) 5 Mg Tablet, 5 MG PO Q6H PRN for PAIN-SEVERE (8- 10) Prescribed by: ESTEPHANIE DELEON on 03/22/22 0209 Pantoprazole Sodium (Protonix) 40 Mg Tablet.dr, 40 MG PO DAILY Prescribed by: TIM HURST on 06/02/17 1320 Promethazine HCl (Promethazine Tablet) 25 Mg Tablet, 25 MG PO Q6H PRN for NAUSEA/VOMITING Prescribed by: TREY NGUYEN on 03/17/22 1910 Simvastatin (Simvastatin) 20 Mg Tablet, 20 MG PO HS, (Reported) Entered as Reported by: EMELY FRANCO on 05/28/17 1407 Sucralfate (Carafate) 1 Gm Tablet, 1 GM PO ACHS, (Reported) Entered as Reported by: EMELY FRANCO on 05/28/17 1407 Review of Systems Review of Systems Constitutional: No fever EENTM: No Symptoms Reported Respiratory: No Symptoms Reported Cardiovascular: No Symptoms Reported Gastrointestinal: See HPI Genitourinary: No Symptoms Reported Musculoskeletal: no symptoms reported Skin: no symptoms reported Psychiatric/Neurological: No Symptoms Reported Endocrine: No Symptoms Reported Hematologic/Lymphatic: No Symptoms Reported All Other Systems Reviewed Negative Unless Noted: Yes Past Cjgzgmb-Fwcxug-Awvhmz Hx Patient Social History Tobacco Use?: No Immunizations Up To Date Tetanus Booster (TDap): Unknown PED Vaccines UTD: No Influenza Vaccine Up-to-Date: Yes; Up-to-Date COVID19 Vaccine Curtain Drier: STATES HAS RECEIVED VACCINE Seasonal Allergies Seasonal Allergies: No Past Medical History Surgeries: Yes Section, Hysterectomy, Parathyroidectomy 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 0.0oz. [id number]; 31.00 BMI Method: General Appearance: WD/WN, mild distress HEENT: PERRL/EOMI, normal ENT inspection, pharynx normal Neck: non-tender, full range of motion, supple, normal inspection Respiratory: chest non-tender, lungs clear, no respiratory distress, no accessory muscle use Cardiovascular: regular rate, rhythm, no edema, no murmur Gastrointestinal: normal bowel sounds, non tender, soft; No distended, No guarding, No rebound Extremities: normal range of motion, non-tender, normal inspection, no pedal edema, no calf tenderness, normal capillary refill Back: normal inspection, no CVA tenderness Neurologic/Psychiatric: no motor/sensory deficits, alert, normal mood/affect Skin: normal color, warm/dry Lymphatic: no adenopathy Focused Exam Lactate Level 03/22/22 01:16: Lactic Acid Level 0.92 Lactic Acid Level Laboratory Tests Test 03/22/22 01:16 Lactic Acid Level 0.92 MMOL/L (0.50-2.00) Progress/Results/Core Measures Results/Orders Lab Results Laboratory Tests Test 03/22/22 01:16 03/22/22 01:20 Range/Units White Blood Count 6.6 4.3-11.0 10^3/uL Red Blood Count 5.01 3.80-5.11 10^6/uL Hemoglobin 15.2 11.5-16.0 g/dL Hematocrit 45 35-52 % Mean Corpuscular Volume 89 80-99 fL Mean Corpuscular Hemoglobin 30 25-34 pg Mean Corpuscular Hemoglobin Concent 34 32-36 g/dL Red Cell Distribution Width 11.8 10.0-14.5 % Platelet Count 208 130-400 10^3/uL Mean Platelet Volume 11.2 9.0-12.2 fL Immature Granulocyte % (Auto) 0 % Neutrophils (%) (Auto) 59 42-75 % Lymphocytes (%) (Auto) 34 12-44 % Monocytes (%) (Auto) 6 0-12 % Eosinophils (%) (Auto) 1 0-10 % Basophils (%) (Auto) 1 0-10 % Neutrophils # (Auto) 3.9 1.8-7.8 10^3/uL Lymphocytes # (Auto) 2.2 1.0-4.0 10^3/uL Monocytes # (Auto) 0.4 0.0-1.0 10^3/uL Eosinophils # (Auto) 0.1 0.0-0.3 10^3/uL Basophils # (Auto) 0.0 0.0-0.1 10^3/uL Immature Granulocyte # (Auto) 0.0 0.0-0.1 10^3/uL Sodium Level 138 135-145 MMOL/L Potassium Level 3.6 3.6-5.0 MMOL/L Chloride Level 106 98-107 MMOL/L Carbon Dioxide Level 21 21-32 MMOL/L Anion Gap 11 5-14 MMOL/L Blood Urea Nitrogen 5 L 7-18 MG/DL Creatinine 0.82 0.60-1.30 MG/DL Estimat Glomerular Filtration Rate 75 BUN/Creatinine Ratio 6 Glucose Level 167 H 70-105 MG/DL Lactic Acid Level 0.92 0.50-2.00 MMOL/L Calcium Level 9.6 8.5-10.1 MG/DL Corrected Calcium 9.4 8.5-10.1 MG/DL Magnesium Level 1.9 1.6-2.4 MG/DL Total Bilirubin 0.9 0.1-1.0 MG/DL Aspartate Amino Transf (AST/SGOT) 22 5-34 U/L Alanine Aminotransferase (ALT/SGPT) 21 0-55 U/L Alkaline Phosphatase 68 40-136 U/L C-Reactive Protein High Sensitivity 0.05 0.00-0.50 MG/DL Total Protein 7.2 6.4-8.2 GM/DL Albumin 4.2 3.2-4.5 GM/DL Lipase 13 8-78 U/L Urine Color YELLOW Urine Clarity CLEAR Urine pH 7.0 5-9 Urine Specific [place] 1.010 L 1.016-1.022 Urine Protein NEGATIVE NEGATIVE Urine Glucose (UA) NEGATIVE NEGATIVE Urine Ketones TRACE H NEGATIVE Urine Nitrite NEGATIVE NEGATIVE Urine Bilirubin NEGATIVE NEGATIVE Urine Urobilinogen 0.2 < = 1.0 MG/DL Urine Leukocyte Esterase TRACE H NEGATIVE Urine RBC (Auto) TRACE-I H NEGATIVE Urine RBC 0-2 /HPF Urine WBC 0-2 /HPF Urine Squamous Epithelial Cells 10-25 H /HPF Urine Crystals NONE /LPF Urine Bacteria NEGATIVE /HPF Urine Casts NONE /LPF Urine Mucus SMALL H /LPF Urine Culture Indicated NO My Orders Orders - ESTEPHANIE DELEON MD Cbc With Automated Diff (03/22/22 01:04) Comprehensive Metabolic Panel (03/22/22 01:04) Hs C Reactive Protein (03/22/22 01:04) Lactic Acid Analyzer (03/22/22 01:04) Lipase (03/22/22 01:04) Magnesium (03/22/22 01:04) Ua Culture If Indicated (03/22/22 01:04) Droperidol Inj (Ed Only) (Inapsine Inj ( (03/22/22 01:15) Lidocaine 2% Viscous 15 Ml (Xylocaine Vi (03/22/22 01:15) Antacid Suspension (Mylanta Suspension (03/22/22 01:15) Acetaminophen Tablet (Tylenol Tablet) (03/22/22 01:15) Medications Given in ED Current Medications Medications Dose Ordered Sig/Jaclyn Route Start Time Stop Time Status Last Admin Dose Admin Acetaminophen 1,000 mg ONCE ONCE PO 03/22/22 01:15 03/22/22 01:16 DC 03/22/22 01:35 1,000 MG Al Hydrox/Mg Hydrox/Simethicone 30 ml ONCE ONCE PO 03/22/22 01:15 03/22/22 01:16 DC 03/22/22 01:35 30 ML Droperidol 2.5 mg ONCE ONCE IV 03/22/22 01:15 03/22/22 01:16 DC 03/22/22 01:35 2.5 MG Lidocaine HCl 15 ml ONCE ONCE PO 03/22/22 01:15 03/22/22 01:16 DC 03/22/22 01:35 15 ML Vital Signs/I&O 03/22/22 00:50 Temp 36.5 Pulse 97 Resp 16 B/P (MAP) 129/95 (106) Pulse Ox 97 O2 Delivery Room Air Blood Pressure Mean: 106 Progress Progress Note : Progress Note 71-year-old female coming in for abdominal pain. ABCs were intact and vitals were stable on presentation. Physical exam reassuring including a soft and nontender abdomen. I reviewed the patient's chart from a couple days ago when she was here. Labs were essentially unremarkable and CT abdomen pelvis did not show anything that would largely explain her symptoms. She did have some abnormal findings on her bladder which I have recommended as well the patient follow-up with a urologist. I will also recommend she follows up with a surgeon for an evaluation in general. Labs essentially unremarkable here including normal white blood cell count, nor mal CRP, normal creatinine, normal LFTs, normal lactic acid making a diagnosis such as mesenteric ischemia less likely. Patient was given medications for symptom management. Her pain significantly improved. I believe she is stable for discharge with outpatient follow-up. She was sent home with strict return precautions. Repeat abdominal exam performed prior to discharge and continues to be reassuring. We will not to repeat CT at this time given no change in symptoms from the most recent one a couple days ago. Departure Impression Primary Impression: Lower abdominal pain Disposition: 01 HOME, SELF-CARE Condition: Stable Departure-Patient Inst. Decision time for Depature: 02:07 Referrals: ISRAEL MERINO MD (PCP/Family) Primary Care Physician TIM HURST ELIAS A MD Patient Instructions: Abdominal Pain, Adult ED Add. Discharge Instructions: Your labs were reassuring today. It does not appear like anything deadly is happening at this time, however obviously it is still very uncomfortable and we would like you to see some specialist to see if we can figure out what is going on completely. Please follow-up with Dr. Hurst for the general abdominal pain to see if he has any other recommendations. Please follow-up with Dr. Hay in regards to your bladder findings. Continue to take ibuprofen and Tylenol as needed for pain. You can take the Zofran for nausea, and oxycodone as needed for severe pain. If the oxycodone dose of 5 mg is too strong, you can try cutting the pill in half. Scripts Oxycodone HCl (Oxycodone HCl) 5 Mg Tablet 5 MG PO Q6H PRN for PAIN-SEVERE (8-10) for 3 Days, #12 TAB Prov: ESTEPHANIE DELEON MD 03/22/22 Ondansetron (Ondansetron Odt) 4 Mg Tab.rapdis 4 MG SL Q6H PRN for NAUSEA/VOMITING for 5 Days, #20 TAB Prov: ESTEPHANIE DELEON MD 03/22/22 ESTEPHANIE DELEON MD Mar 22, 2022 01:36
[2022-03-22 01:44] LABS: BACTERIA,URINE NEGATIVE /HPF; RBC,URINE 0-2 /HPF; WBC,URINE 0-2 /HPF
[2022-03-22 01:47] LABS: ALBUMIN 4.2 GM/DL (3.2-4.5); BILIRUBIN,TOTAL 0.9 MG/DL (0.1-1.0); CALCIUM 9.6 MG/DL (8.5-10.1); CREATININE SERUM 0.82 MG/DL (0.60-1.30); MAGNESIUM 1.9 MG/DL (1.6-2.4); POTASSIUM 3.6 MMOL/L (3.6-5.0); TOTAL PROTEIN 7.2 GM/DL (6.4-8.2)
[2022-03-22] MEDS ORDERED: OXYC5TAB PO (02:08)
[2022-03-22] MEDS ORDERED: ONDA4TAB11 SL (02:08)
[2022-03-22 02:31] VITALS: BP 132/89
== END 2022-03-22 02:32 | disposition home or self-care (01) ==
LOC: EDUNIT# 00:39 → ER 00:42
DX: R10.30 Lower abdominal pain, unspecified (principal); Z87.19 Personal history of other diseases of the digestive system
CPT/HCPCS: 36415; 80053; 81000; 83605; 83690; 83735; 85025; 86141; 99283

== ENCOUNTER → 2022-07-01 | Outpatient (CLI) | payer MEDICARE, OTHER ==
[~2022-07-01] MED LIST changes: +ONDA4TAB11 SL; +OXYC5TAB PO
--- NOTE | 2022-07-01 13:06 | Diagnostic Imaging Report ---
INDICATION: Abdominal pain. COMPARISON: 02/23/2022. TECHNIQUE: Frontal view of the abdomen. FINDINGS: No distended loops of bowel are seen. There is no large collection of free air. Overall, the stool burden appears low although multiple hyperdense tablets are noted in the colon. There are phleboliths in the pelvis. There are degenerative changes in the lumbar spine. Cholecystectomy clips are noted. There are degenerative changes in the bilateral hips. IMPRESSION: No bowel obstruction or large collection of free air. Dictated by: Dictated on workstation # [id number]
== END ==
LOC: RAD 10:21
PROVIDERS: ATTEND Family Medicine
DX: R10.9 Unspecified abdominal pain (principal)
CPT/HCPCS: 74018